=== PATIENT | female | born 1980 | race Caucasian/White ===

== ENCOUNTER 2020-08-03 16:53 | Outpatient (CLI) | payer BC, SELFPAY ==
--- NOTE | ~2020-08-03 | CT_ITS ---
EXAMINATION: CT abdomen pelvis wo con DATE: 08/03/2020 17:37 INDICATION: Right flank pain TECHNIQUE: Computed tomography (CT) of the abdomen and pelvis was performed without intravenous contr ast. Automated exposure control and iterative reconstruction technique were employed. The dose-length product was 306.96 mGy-cm. COMPARISON: 12/02/2017 FINDINGS: Lung bases are clear. Heart size is normal. No pericardial or pleural effusion. Liver, gallbladder, s pleen, pancreas and bilateral adrenal glands are normal. Small region of cortical scarring at the low er pole of the right kidney. Bilateral nephrolithiasis with 2 mm stone in the lower pole calyx of the right kidney and 1.3 cm stone at the right renal pelvis. 4 small stones in the left kidney, the larg est measuring 4-5 mm. No hydronephrosis or stones seen along the course of the ureters. Bowels includ ing the appendix are normal. Bladder is normal. T-shaped IUD in expected position within the antevert ed uterus. 4.4 cm right adnexal cyst. Left adnexa is unremarkable. No free intraperitoneal gas or flu id. No pathologically enlarged abdominal or pelvic lymphadenopathy. Mild lumbar levocurvature. Sclero sis along both sides of the left and right sacroiliac joints which could be related to the moderate o steoarthritis, osteitis condensans ilii or combination thereof. IMPRESSION: 1. Bilateral nephrolithiasis including a 1.3 cm stone at the right renal pelvis but no ureteral stone s or hydronephrosis. 2. 4.4 similar right adnexal cyst. 3. IUD in expected position. Reviewed, dictated and finalized at location A. IMPRESSION: 1. Bilateral nephrolithiasis including a 1.3 cm stone at the right renal pelvis but no ureteral stones or hydronephrosis. 2. 4.4 similar right adnexal cyst. 3. IUD in expected position.
[2020-08-03 17:14] LABS: Basophils Absolute Auto 0.06 K/mm3 (0.00-0.10); Basophils Percent Auto 0.7 % (0.0-1.0); Eosinophils Absolute Auto 0.17 K/mm3 (0.02-0.50); Eosinophils Percent Auto 1.9 % (1.0-6.0); Hematocrit 42.5 % (35.0-49.0); Hemoglobin 14.2 g/dL (12.0-15.0); Immature Granulocyte Absolute 0.14 K/mm3 (0.00-0.00); Immature Granulocyte Percent A 1.5 % (0.0-0.0); Lymphocytes Absolute Auto 1.91 K/mm3 (1.10-4.50); Lymphocytes Percent Auto 20.9 % (18.0-42.0); Mean Corpuscular HGB Conc 33.4 g/dL (32.0-36.0); Mean Corpuscular Hemoglobin 30.2 pg (27.0-31.0); Mean Corpuscular Volume 90.4 fL (78.0-102.0); Monocytes Absolute Auto 0.52 K/mm3 (0.10-0.90); Monocytes Percent Auto 5.7 % (2.0-11.0); Neutrophils Absolute Auto 6.4 K/mm3 (1.7-7.2); Neutrophils Percent Auto 69.3 % (50.0-70.0); Platelet Count Result 252 K/mm3 (150-420); Red Cell Distribution Width 12.6 % (11.6-14.4); White Blood Count 9.2 K/mm3 (4.8-10.8)
[2020-08-03 17:15] LABS: Add Urine Microscopic? YES; Appearance Urine Sl Cloudy (Clear); Bilirubin Urine Negative (Negative); Blood Urine 1+ (Negative); Color Urine Yellow (Yellow); Glucose Urine UA Negative (Negative); Ketones Urine Negative (Negative); Leukocyte Esterase Ur 2+ (Negative); Nitrate Urine Negative (Negative); Protein Urine Negative (Negative); Urobilinogen Urine 0.2 mg/dL (0.2-1.0)
[2020-08-03 17:21] LABS: Bacteria Urine 1+ /hpf; Squamous Epithelial Cell Urine Many /hpf (Few)
[2020-08-03 17:53] LABS: Anion Gap 8 mmol/L (8-16); Blood Urea Nitrogen 17 mg/dL (7-18); Calcium 9.5 mg/dL (8.5-10.1); Carbon Dioxide 30 mmol/L (21-32); Chloride 102 mmol/L (98-108); Estimated Glomerular Filt Rate 58; Glucose 83 mg/dL (70-99); Osmolality Calculated 290 mOsm/kg (285-295); Potassium 3.9 mmol/L (3.5-5.1); Sodium 140 mmol/L (136-145)
== END 2020-08-03 16:54 | disposition home or self-care (01) ==
LOC: CHSLAB 16:56
PROVIDERS: PCP Internal Medicine; Visit Provider Internal Medicine
DX: R31.9 Hematuria, unspecified (principal)
CPT/HCPCS: 36415; 74176; 80048; 81001; 85025; 87086; 87088

== ENCOUNTER 2020-08-10 16:42 | Outpatient (CLI) | payer BC, SELFPAY ==
--- NOTE | ~2020-08-10 | XR_ITS ---
EXAMINATION: XR abdomen/kub 1V DATE: 08/10/2020 17:03 INDICATION: Right flank pain. Urolithiasis. TECHNIQUE: A supine view of the abdomen on 2 radiographs was obtained. COMPARISON: CT abdomen and pelvis 08/03/2020 FINDINGS: There are no dilated loops of bowel. There is an intrauterine device in expected position. There is a 1.9 cm stone in right renal pelvis. There is a 3 mm stone in right kidney. There are 3 mm and 5 mm stones in left kidney. Phleboliths in the pelvis. IMPRESSION: 1. Bilateral kidney stones. Reviewed, dictated and finalized at location A. IMPRESSION: 1. Bilateral kidney stones.
== END 2020-08-10 16:43 | disposition home or self-care (01) ==
PROVIDERS: PCP Internal Medicine; Visit Provider Nurse Practitioner Adult Health
DX: N20.0 Calculus of kidney (principal)
CPT/HCPCS: 74018

== ENCOUNTER → 2020-08-15 01:45 | Outpatient (CLI) | payer BC, SELFPAY ==
[2020-08-15 18:55] LABS: SARS-CoV-2 RNA PCR Negative
== END ==
PROVIDERS: PCP Internal Medicine; Visit Provider Urology
DX: Z01.812 Encounter for preprocedural laboratory examination (principal); Z20.822 Contact with and (suspected) exposure to COVID-19
CPT/HCPCS: C9803; U0003; U0005

== ENCOUNTER 2020-08-15 09:39 | Outpatient (CLI) | payer BC, SELFPAY ==
--- NOTE | 2020-08-15 10:00 | ECG_ITS ---
Measurements Intervals [place] Rate: 85 P: 28 WI: 140 QRS: 32 QRSD: 85 T: 51 QT: 357 QTc: 427 Interpretive Statements SINUS RHYTHM WITH SINUS ARRHYTHMIA BASELINE ARTIFACT- I, III, AVL NORMAL ECG Electronically Signed On 08-15-2020 10:34:20 CDT by Elio Carter D.O.
[2020-08-15 10:16] LABS: INR 0.9; Partial Thromboplastin Time 24.8 SECONDS (22.3-36.8); Prothrombin Time 12.8 Seconds (11.1-14.7)
[2020-08-15 10:26] LABS: Beta HCG Quantitative < 2.39 mIU/ML
== END 2020-08-15 09:40 | disposition home or self-care (01) ==
LOC: ANHSURGERY 09:41
PROVIDERS: PCP Internal Medicine; Visit Provider Urology
DX: N20.0 Calculus of kidney (principal); I10 Essential (primary) hypertension; Z01.818 Encounter for other preprocedural examination
CPT/HCPCS: 36415; 84702; 85610; 85730; 93005

== ENCOUNTER 2020-08-18 05:47 | Day surgery (SDC) | payer BC, SELFPAY ==
[2020-08-14 18:08] VITALS: BMI 32.3
[2020-08-18] VITALS (7 sets, daily range): BP systolic 143–160; BP diastolic 84–97; PULSE 78–90; RESP 14–20; TEMP 36.6–37.2; O2SAT 96–100
--- NOTE | ~2020-08-18 | XR_ITS ---
EXAMINATION: XR abdomen/kub 1V DATE: 08/18/2020 11:21 INDICATION: Right abdominal pain. TECHNIQUE: A supine view of the abdomen on 2 radiographs was obtained. COMPARISON: CT abdomen and pelvis 08/03/2020, radiographs 08/10/2020 FINDINGS: There are phleboliths in the pelvis. There is a intrauterine device in expected position. T here is a 1.9 cm stone in right renal pelvis. There is a 3 mm stone in right kidney lower pole. There are 6 mm and 3 mm stones in left kidney. IMPRESSION: 1. Stones in the kidneys and right renal pelvis. Reviewed, dictated and finalized at location B.
--- NOTE | 2020-08-18 11:13 | WPDHPUPDATE1 ---
History and Physical Update Update Date/Time: 08/18/20 11:13 History and Physical has been reviewed, including an updated exam of the patient. There are NO changes in the patient's condition. Risks, benefits, and alternatives have been discussed and questions answered. Patient agrees to proceed with procedure.
--- NOTE | 2020-08-18 11:43 | WPDANESEPPF ---
Anes - Initial Pre Proc Eval Procedure: Operation Date: 08/18/20 13:00 Proposed Procedures p Right Extracorporeal Shock Wave Lithotripsy - Pato Jose MD s Possible Cystoscopy, Right Retrograde Pyelogram, Possible Right Stent Placement - Pato Jose MD Date/Time: 08/18/20 11:43 Surgeon: Pato Jose MD Pre Op Diagnosis: Right Renal Stone Patient Data Age: 39 Gender: F Height: 5 ft 6 in Weight: 90.72 kg Allergies Allergy/AdvReac Type Severity Reaction Status Date / Time No Known Allergies Allergy Verified 08/18/20 11:44 Home Medications Medication Instructions Recorded Confirmed Type acetaminophen [Tylenol Extra 1,000 mg PO Q6H PRN 08/14/20 08/14/20 History Strength] amlodipine 10 mg PO HS 08/14/20 08/14/20 History multivitamin,vz-ugwe-jqoqyvcc 1 tablet PO DAILY 08/14/20 08/14/20 History [Complete Multivitamin] rosuvastatin 2.5 mg PO HS 08/14/20 08/14/20 History Patient hx anesthesia problems: none Family hx anesthesia problems: none PMFSH Past Medical History Medical History Hyperlipidemia Hypertension Family History Family History Mother Patient's mother is in good health Father Patient's father is in good health Sibling Patient's sister is in good health Grandparent Diabetes mellitus Social History Social History Smoking packs per day: 0.5 Smoking cigarettes per day: 10.0 Years smoked: 6 Smoking pack-years: 3.00 Smoking status: Former smoker Tobacco type: cigarettes Second hand tobacco smoke exposure: No Smoking end date: 05/08/05 Alcohol intake: never Substance use: never Substance use type: does not use Last use: 2005 Living arrangements: with family Spiritual care concerns: No Anes - Eval Final PreProcedure Day of Procedure 08/18/20 11:43 Patient weight: obese Heart: regular rate and rhythm Lungs: clear to auscultation Airway: Mallampati scale class II Neurological: alert and oriented Last oral intake: >/= 8 hours ASA classification: III Emergent: no Anesthetic plan: proceed Anesthesia type and monitoring: general LMA and standard monitoring Informed Consent: The patient's anesthetic plan and its attendant risks and benefits were discussed with the patient/family/POA. Questions were solicited and answers provided to the satisfaction of the patient/family/POA.
[2020-08-18] MEDS: LACTATED RINGERS 1,000 ML 30 ML IV CONT ×2 (12:02→16:35)
--- NOTE | 2020-08-18 13:12 | SUR.PREOP ---
pt informed delay in procedure.
--- NOTE | 2020-08-18 14:48 | P.OP_ITS ---
Procedure Note - Detailed Date of procedure: 08/18/20 Pre-op diagnosis: Right Renal Stone Post-op diagnosis: same Procedure performed: Flexible cystoscopy with right retrograde right stent placement, ESWL right renal calculus Description of procedure: Patient is taken the operative suite and correctly identified. Once anesthesia was obtained she was placed in a frog-leg position and prepped and draped usual sterile fashion. Sixteen [place] scope was placed in the bladder. There are no tumors noted. The right ureteral orifice was cannulated with a guidewire. This was advanced up past the stone. [place] was then inserted. Retrograde pyelogram was then performed to delineate the collecting system. The stent was then placed with the proximal end coiled in the upper pole by passing the stone in the coiling in the bladder. It was a 4.8 [place] contour stent. Patient was then repositioned. Two thousand five hundred shocks were given to the stone. It is a fairly large dense stone. Left to see how well of fragments. Will need to make a decision whether this will be a repeat treatment versus requiring percutaneous nephrolithotomy. Anesthesia: GLMA Surgeon: Pato Jose MD Drains: Yes Packing: No Pathology: none sent Complications: No immediate complications Condition: stable Disposition: PACU
[2020-08-18] MEDS: ONDANSETRON INJ 4 MG/2 ML VIAL IV PUSH (15:08)
--- NOTE | 2020-08-18 15:14 | SUR.PHASEI ---
1514- c/o nausea. medicated for same.
[2020-08-18] MEDS: oxyCODONE HCL (*CRX) 5 MG TAB IR PO (16:22)
== END 2020-08-18 17:00 | disposition home or self-care (01) ==
PROVIDERS: PCP Internal Medicine; Visit Provider Urology
PROC: (CPT 50590; principal; 2020-08-18 13:00)
PROC: (CPT 52352; 2020-08-18 13:00)
DX: N20.0 Calculus of kidney (principal); I10 Essential (primary) hypertension; E78.5 Hyperlipidemia, unspecified; Z87.891 Personal history of nicotine dependence; E66.9 Obesity, unspecified; Z68.31 Body mass index [BMI] 31.0-31.9, adult
CPT/HCPCS: 50590; 52332; 74018; A9270; C1758; C1769; C2617; J1100; J2250; J2405; J2704; J3010; J7030; J7120; Q9966

== ENCOUNTER 2020-08-28 14:47 | Outpatient (CLI) | payer BC, SELFPAY ==
--- NOTE | ~2020-08-28 | XR_ITS ---
XR abdomen/kub 1V 08/28/2020 14:58 Indication: Urolithiasis Procedure: KUB Comparison: Comparison to multiple prior studies sequentially, with oldest reviewed study dated 10/02. Findings: Bowel gas pattern is nonobstructive. There are bilateral renal stones. There is a right int ernal ureteral stents. There is an IUD in the pelvis. There are pelvic phleboliths. Bowel gas pattern is nonobstructive. Impression: 1: Bilateral nephrolithiasis. Reviewed, dictated and finalized at location A. Impression: 1: Bilateral nephrolithiasis.
== END 2020-08-28 14:48 | disposition home or self-care (01) ==
LOC: ANHIMG 14:50
PROVIDERS: PCP Internal Medicine; Visit Provider Nurse Practitioner Adult Health
DX: N20.0 Calculus of kidney (principal)
CPT/HCPCS: 74018

== ENCOUNTER 2020-09-25 15:19 | Outpatient (CLI) | payer BC, SELFPAY ==
[2020-09-25 16:27] LABS: Prothrombin Time 13.9 Seconds (11.1-14.7)
[2020-09-25 16:28] LABS: Partial Thromboplastin Time 26.9 SECONDS (22.3-36.8)
[2020-09-25 16:37] LABS: Beta HCG Quantitative < 2.39 mIU/ML
== END 2020-09-25 15:20 | disposition home or self-care (01) ==
PROVIDERS: PCP Internal Medicine; Visit Provider Urology
DX: N20.0 Calculus of kidney (principal); Z01.818 Encounter for other preprocedural examination
CPT/HCPCS: 36415; 84702; 85610; 85730; 87086; 87088

== ENCOUNTER → 2020-09-26 02:18 | Outpatient (CLI) | payer BC, SELFPAY ==
[2020-09-27 16:33] LABS: SARS-CoV-2 RNA PCR Negative
== END ==
PROVIDERS: PCP Internal Medicine; Visit Provider Urology
DX: Z01.812 Encounter for preprocedural laboratory examination (principal); Z20.822 Contact with and (suspected) exposure to COVID-19
CPT/HCPCS: C9803; U0003; U0005

== ENCOUNTER 2020-09-29 01:45 | Day surgery (SDC) | payer BC, SELFPAY ==
[2020-09-22 14:48] VITALS: BMI 32.3
[2020-09-29] VITALS (7 sets, daily range): BP systolic 128–146; BP diastolic 80–90; PULSE 73–87; RESP 13–18; TEMP 36.2–36.4; O2SAT 95–100
--- NOTE | ~2020-09-29 | XR_ITS ---
EXAMINATION: XR abdomen/kub 1V INDICATION: Urolithiasis TECHNIQUE: Supine views of the abdomen were obtained on 2 radiographs. COMPARISON: 08/28/2020 FINDINGS: A right internal ureteral stent is in expected position. There are multiple stones around t he coiled portion of the stent in the renal pelvis. Multiple stones have migrated from the proximal u reter to the distal ureter and are seen along the distal aspect of the internal ureteral stent. Stone s measuring 8 mm, 7 mm, 4 mm, and 6 mm are seen in the right mid and lower kidney. There is a [address] one of the left kidney. There are multiple stones phleboliths are noted in the pelvis. There is an IU D. The bowel gas pattern is normal. IMPRESSION: 1. Right internal ureteral stent in expected position with stones adjacent to the coiled portion of t he stent in the renal pelvis as well as the distal portion of the stent. 2. Bilateral nephrolithiasis. Reviewed, dictated and finalized at location A. IMPRESSION: 1. Right internal ureteral stent in expected position with stones adjacent to t he coiled portion of the stent in the renal pelvis as well as the distal portio n of the stent. 2. Bilateral nephrolithiasis.
--- NOTE | 2020-09-29 09:42 | WPDHPUPDATE1 ---
History and Physical Update Update Date/Time: 09/29/20 09:42 History and Physical has been reviewed, including an updated exam of the patient. There are NO changes in the patient's condition. Risks, benefits, and alternatives have been discussed and questions answered. Patient agrees to proceed with procedure. Proceed with eswl of right renal and proximal ureteral calculus, possible cystoscopy, possible right stent exchange.
[2020-09-29] MEDS: LACTATED RINGERS 1,000 ML 30 ML IV CONT ×2 (10:00→11:55)
--- NOTE | 2020-09-29 10:11 | P.PNAN_ITS ---
Anes - Initial Pre Proc Eval Procedure: Operation Date: 09/29/20 11:30 Proposed Procedures p Right Extracorporeal Shock Wave Lithotripsy, Proximal Ureteral and Renal, - Pato Jose MD s Possible Cystoscopy, Possible Right Stent Exchange - Pato Jose MD Date/Time: 09/29/20 10:11 Surgeon: Pato Jose MD Pre Op Diagnosis: urolithiasis, renal stones Patient Data Age: 40 Gender: F Height: 1.68 m Weight: 90.75 kg Allergies Allergy/AdvReac Type Severity Reaction Status Date / Time No Known Allergies Allergy Verified 09/22/20 14:15 Home Medications Medication Instructions Recorded Confirmed Type acetaminophen 1,000 mg PO Q6H PRN 08/14/20 09/22/20 History amlodipine 10 mg PO HS 08/14/20 09/22/20 History multivitamin,ng-rxlq-qnxcwxky 1 tablet PO DAILY 08/14/20 09/22/20 History rosuvastatin 2.5 mg PO HS 08/14/20 09/22/20 History Patient hx anesthesia problems: none Family hx anesthesia problems: none [facility] Past Medical History Medical History (Updated 09/29/20 @ 10:11 by Otf Story MD) Hyperlipidemia Hypertension Obesity Family History Family History Mother Patient's mother is in good health Father Patient's father is in good health Sibling Patient's sister is in good health Grandparent Diabetes mellitus Social History Social History Smoking packs per day: 0.5 Smoking cigarettes per day: 10.0 Years smoked: 10 Smoking pack-years: 5.00 Smoking status: Former smoker Tobacco type: cigarettes Second hand tobacco smoke exposure: No Smoking end date: 04/07/05 Alcohol intake: current Drinks per week: 1 Substance use: never Substance use type: does not use Last use: 2005 Living arrangements: with family Spiritual care concerns: No Anes - Eval Final PreProcedure Day of Procedure 09/29/20 10:11 Patient weight: obese Heart: regular rate and rhythm Lungs: clear to auscultation Airway: Mallampati scale class II Neurological: alert and oriented Last oral intake: >/= 8 hours ASA classification: III Emergent: no Anesthetic plan: proceed Anesthesia type and monitoring: general LMA and standard monitoring Informed Consent: The patient's anesthetic plan and its attendant risks and benefits were discussed with the patient/family/POA. Questions were solicited and answers provided to the satisfaction of the patient/family/POA.
[2020-09-29] MEDS: ceFAZolin 2 GM/D5W 50 ML 2 GM/50 ML BAG IVPB (10:25)
--- NOTE | 2020-09-29 11:48 | W.PM.PROC2 ---
Procedure Note - Detailed Date of Procedure 09/29/20 Pre-op Diagnosis urolithiasis, renal stones Post-op Diagnosis same Procedure Performed ESWL of right renal calculi, ESWL of distal right ureteral calculi Surgeon Pato Jose MD Anesthesia general Description of Procedure Patient is taken the operative suite and correctly identified. Once anesthesia was obtained the stones in the right kidney were localized. She has a collection of stones in the renal pelvis adjacent to the stent. One thousand eight hundred shocks were given to this segment. We then gave 700 shocks to the upper pole stone. Patient also has some stone fragments in the distal ureter. She was repositioned and 3000 shocks were given to the distal ureteral calculi. Patient tolerated procedure well without any complications taken recovery stable condition. She will follow up in about 10 -14 days with KUB Packing No Pathology none sent Complications No immediate complications Condition stable Disposition PACU
== END 2020-09-29 13:57 | disposition home or self-care (01) ==
PROVIDERS: PCP Internal Medicine; Visit Provider Urology
PROC: (CPT 50590; principal; 2020-09-29 11:30)
DX: N20.2 Calculus of kidney with calculus of ureter (principal); E78.5 Hyperlipidemia, unspecified; Z87.891 Personal history of nicotine dependence; E66.8 Other obesity; Z68.32 Body mass index [BMI] 32.0-32.9, adult; I10 Essential (primary) hypertension
CPT/HCPCS: 50590; 74018; A9270; J0690; J2250; J2405; J2704; J3010; J7030; J7120

== ENCOUNTER 2020-10-10 17:36 | Outpatient (CLI) | payer BC, SELFPAY ==
--- NOTE | ~2020-10-10 | XR_ITS ---
XR abdomen/kub 1V 10/10/2020 17:51 Indication: Right ureteral and renal stone. Procedure: KUB Comparison: Comparison to multiple prior studies sequentially, with oldest reviewed study dated 09/2020. Findings: There are bilateral renal stones. Right internal ureteral stent in expected position. There is an IUD in the pelvis. There are stones in the right renal collecting system. Bowel gas pattern is nonobstructive. Impression: 1: Bilateral nephrolithiasis with right internal ureteral stent in expected position. Reviewed, dictated and finalized at location A. Impression: 1: Bilateral nephrolithiasis with right internal ureteral stent in expected pos ition.
== END 2020-10-10 17:37 | disposition home or self-care (01) ==
LOC: ANHIMG 17:39
PROVIDERS: PCP Internal Medicine; Visit Provider Nurse Practitioner Adult Health
DX: N20.0 Calculus of kidney (principal)
CPT/HCPCS: 74018

== ENCOUNTER 2020-10-24 10:08 | Outpatient (CLI) | payer BC, SELFPAY ==
[2020-10-24 10:45] LABS: INR 0.9; Prothrombin Time 12.4 Seconds (11.1-14.7)
[2020-10-24 10:46] LABS: Partial Thromboplastin Time 26.4 SECONDS (22.3-36.8)
[2020-10-24 11:02] LABS: Beta HCG Quantitative < 2.39 mIU/ML
== END 2020-10-24 10:09 | disposition home or self-care (01) ==
LOC: ANHSURGERY 10:11
PROVIDERS: PCP Internal Medicine; Visit Provider Urology
DX: N20.0 Calculus of kidney (principal); Z01.818 Encounter for other preprocedural examination
CPT/HCPCS: 36415; 84702; 85610; 85730

== ENCOUNTER 2020-10-27 02:25 | Day surgery (SDC) | payer BC, SELFPAY ==
[2020-10-23 15:30] VITALS: BMI 32.3
[2020-10-27] VITALS (8 sets, daily range): BP systolic 137–170; BP diastolic 85–94; PULSE 79–88; RESP 12–17; TEMP 36.4–36.7; O2SAT 94–100
--- NOTE | ~2020-10-27 | XR_ITS ---
EXAMINATION: XR abdomen/kub 1V INDICATION: Urolithiasis TECHNIQUE: Supine views of the abdomen were obtained on 2 radiographs. COMPARISON: 10/10/2020 FINDINGS: A right internal ureteral stent is in expected position. There are multiple stones near the proximal aspect of the stent. At least three stones measuring up to 5 mm are seen in the right kidne y. A 10 mm stone on the left appears to have migrated from the left kidney lower pole into the left r enal pelvis. There are phleboliths of the pelvis. An IUD is noted. The bowel gas pattern is normal. T here is osteitis pubis at the pubic symphysis. IMPRESSION: 1. Multiple stones adjacent to the proximal aspect of the right internal ureteral stent. 2. 10 mm left-sided stone which now appears to project in the left renal pelvis. 3. Right nephrolithiasis. Reviewed, dictated and finalized at location B. IMPRESSION: 1. Multiple stones adjacent to the proximal aspect of the right internal ureter al stent. 2. 10 mm left-sided stone which now appears to project in the left renal pelvis . 3. Right nephrolithiasis.
--- NOTE | 2020-10-27 10:24 | WPDHPUPDATE1 ---
History and Physical Update Update Date/Time: 10/27/20 10:24 History and Physical has been reviewed, including an updated exam of the patient. There are NO changes in the patient's condition. Risks, benefits, and alternatives have been discussed and questions answered. Patient agrees to proceed with procedure. Proceed with right renal eswl
[2020-10-27] MEDS: LACTATED RINGERS 1,000 ML 30 ML IV CONT (10:40)
--- NOTE | 2020-10-27 11:34 | WPDANESEPPF ---
Anes - Initial Pre Proc Eval Procedure: Operation Date: 10/27/20 12:00 Proposed Procedures p Right Ureteral Extracorporeal Shock Wave Lithotripsy - Pato Jose MD Date/Time: 10/27/20 11:34 Surgeon: Pato Jose MD Pre Op Diagnosis: right UPJ calculus Patient Data Age: 40 Gender: F Height: 1.68 m Weight: 90.4 kg Last Vital Signs Temp 36.7 C 10/27/20 10:57 Pulse 86 10/27/20 10:57 Resp 16 10/27/20 10:57 BP 170/93 H 10/27/20 10:57 Pulse Ox 100 10/27/20 10:57 Allergies Allergy/AdvReac Type Severity Reaction Status Date / Time No Known Allergies Allergy Verified 10/27/20 10:57 Home Medications Medication Instructions Recorded Confirmed Type acetaminophen 1,000 mg PO Q6H PRN 08/14/20 10/27/20 History amlodipine 10 mg PO HS 08/14/20 10/27/20 History rosuvastatin 2.5 mg PO HS 08/14/20 10/27/20 History multivit with min-folic acid 1 tablet PO DAILY 10/23/20 10/27/20 History [Adult One Daily Multivitamin] Patient hx anesthesia problems: none Family hx anesthesia problems: none PMFSH Past Medical History Medical History Hyperlipidemia Hypertension Obesity Family History Family History Mother Patient's mother is in good health Father Patient's father is in good health Sibling Patient's sister is in good health Grandparent Diabetes mellitus Social History Social History Smoking packs per day: 0.5 Smoking cigarettes per day: 10.0 Years smoked: 8 Smoking pack-years: 4.00 Smoking status: Former smoker Tobacco type: cigarettes Second hand tobacco smoke exposure: No Smoking end date: 10/23/20 Alcohol intake: never Drinks per week: 1 Substance use: never Substance use type: does not use Last use: 2005 Living arrangements: with family Spiritual care concerns: No Anes - Eval Final PreProcedure Day of Procedure 10/27/20 11:34 Patient weight: obese Heart: regular rate and rhythm Lungs: decreased breath sounds Airway: Mallampati scale class II Neurological: alert and oriented Last oral intake: >/= 8 hours ASA classification: III Emergent: no Anesthetic plan: proceed Anesthesia type and monitoring: general LMA and standard monitoring Informed Consent: The patient's anesthetic plan and its attendant risks and benefits were discussed with the patient/family/POA. Questions were solicited and answers provided to the satisfaction of the patient/family/POA.
[2020-10-27] MEDS: ceFAZolin 2 GM/D5W 50 ML 2 GM/50 ML BAG IVPB (11:54)
[2020-10-27] MEDS: LIDOCAINE HCL 2% GEL UROJET 10 ML PKG MUCOUS MEM (12:50)
--- NOTE | 2020-10-27 12:56 | P.OP_ITS ---
Procedure Note - Detailed Date of Procedure 10/27/20 Pre-op Diagnosis Bilateral UPJ calculi Post-op Diagnosis same Procedure Performed cystoscopy, right retrograde pyelogram, right ureteral stent exchange 4.8 [place] contour, left retrograde pyelogram left stent placement 4.8 [place] contour, ESWL right UPJ calculus Surgeon Pato Jose MD Anesthesia general Description of Procedure patient is taken to the operative suite and correctly identified. Once anesthesia was obtained she was placed in the supine position. The stone in the right UPJ area was visualized. Two thousand five hundred shocks were given this area. We then repositioned the patient in a frog-leg position. Cystoscopy is performed. There are no tumors noted. The right ureteral stent is then grasped and brought out the meatus. It had already calcified. We thus placed a [place] wire alongside the stent all way up into the kidney and removed the stent. Pyelogram was then performed through a [place] ureteral catheter. This was done to confirm placement of the stent. A 4.8 [place] contour stent was then passed over the wire with the proximal end coiled in the renal pelvis and the distal in the bladder. The left ureteral orifice was then cannulated with a guidewire. [place] was inserted. The stone was pushed back up into the kidney. Pyelogram was performed to confirm placement of the stent. 4.8 [place] contour stent was then placed with the proximal end coiled in the renal pelvis and the distal in the bladder. 2% viscous lidocaine was inserted into the urethra. Patient is taken recovery stable condition. She will follow up in about a week's time for KUB and hopefully right stent removal. Will need to schedule lithotripsy of the left stent elevator point time. Drains Yes Packing No Pathology none sent Complications No immediate complications Condition stable Disposition PACU
== END 2020-10-27 14:55 | disposition home or self-care (01) ==
PROVIDERS: PCP Internal Medicine; Visit Provider Urology
PROC: (CPT 50590; principal; 2020-10-27 12:00)
PROC: (CPT 52352; 2020-10-27 12:00)
DX: N20.1 Calculus of ureter (principal); I10 Essential (primary) hypertension; E78.5 Hyperlipidemia, unspecified; E66.9 Obesity, unspecified; Z68.32 Body mass index [BMI] 32.0-32.9, adult; Z87.891 Personal history of nicotine dependence
CPT/HCPCS: 52332; 50590; 74018; C1758; C1769; C2617; J0690; J1100; J1170; J2250; J2405; J2704; J7120; Q9966

== ENCOUNTER 2020-11-02 16:38 | Outpatient (CLI) | payer BC, SELFPAY ==
--- NOTE | ~2020-11-02 | XR_ITS ---
EXAMINATION: XR abdomen/kub 1V INDICATION: History of bilateral kidney stones TECHNIQUE: Supine views of the abdomen were obtained on 2 radiographs. COMPARISON: 10/27/2020 FINDINGS: A right internal ureteral stent is in expected position. Stones persist near the coiled asp ect of the proximal stent. There is a 5 mm stone in the right kidney lower pole. A 5 mm stone is note d in the right mid kidney. There has been interval insertion of a left internal ureteral stent which is in expected position. A 10 mm stone is seen in the lower pole of the left kidney. There are multip le phleboliths of the pelvis. The bowel gas pattern is normal. An IUD is noted. There is mild osteoar thritis of the hips and mild osteitis pubis. IMPRESSION: 1. Bilateral nephrolithiasis. 2. Left internal ureteral stent insertion. 3. Right internal ureteral stent in expected position with unchanged stones seen near the coil aspect of the proximal stent. Reviewed, dictated and finalized at location A. IMPRESSION: 1. Bilateral nephrolithiasis. 2. Left internal ureteral stent insertion. 3. Right internal ureteral stent in expected position with unchanged stones see n near the coil aspect of the proximal stent.
== END 2020-11-02 16:39 | disposition home or self-care (01) ==
LOC: ANHIMG 16:40
PROVIDERS: PCP Internal Medicine; Visit Provider Urology
DX: N20.0 Calculus of kidney (principal)
CPT/HCPCS: 74018

== ENCOUNTER 2020-11-07 11:25 | Outpatient (CLI) | payer BC, SELFPAY ==
[2020-11-07 12:10] LABS: INR 0.9; Prothrombin Time 12.2 Seconds (11.1-14.7)
[2020-11-07 12:11] LABS: Partial Thromboplastin Time 32.6 SECONDS (22.3-36.8)
[2020-11-07 12:26] LABS: Beta HCG Quantitative < 2.39 mIU/ML
== END 2020-11-07 11:26 | disposition home or self-care (01) ==
LOC: ANHSURGERY 11:26
PROVIDERS: PCP Internal Medicine; Visit Provider Urology
DX: N20.0 Calculus of kidney (principal); Z01.818 Encounter for other preprocedural examination
CPT/HCPCS: 36415; 84702; 85610; 85730; 87086; 87088

== ENCOUNTER 2020-11-10 03:30 | Day surgery (SDC) | payer BC, SELFPAY ==
[2020-11-06 17:01] VITALS: BMI 32.3
[2020-11-10] VITALS (9 sets, daily range): BP systolic 118–135; BP diastolic 75–88; PULSE 86–118; RESP 14–20; TEMP 36.4–36.9; O2SAT 93–100
--- NOTE | ~2020-11-10 | XR_ITS ---
EXAMINATION: XR abdomen/kub 1V INDICATION: Nephrolithiasis TECHNIQUE: Supine views of the abdomen were obtained on 2 radiographs. COMPARISON: 11/02/2020 FINDINGS: There are bilateral internal ureteral stents in expected position. A 10 mm stone is seen ne ar the coiled aspect of the left internal ureteral stent in the left renal pelvis. There are multiple small stones seen near the coiled aspect of the right internal ureteral stent in the right renal pel vis. There is a 4 mm stone of the right kidney lower pole. There are small stones adjacent to the dis matt aspect of the right internal ureteral stent. Phleboliths are noted in the pelvis. An IUD is prese nt. The bowel gas pattern is normal. IMPRESSION: 1. Internal ureteral stent in expected positions with stones adjacent to the coiled aspects of the st ents in the bilateral renal pelves. 2. Small stones adjacent to the distal aspect of the right internal ureteral stent. Reviewed, dictated and finalized at location A. IMPRESSION: 1. Internal ureteral stent in expected positions with stones adjacent to the co iled aspects of the stents in the bilateral renal pelves. 2. Small stones adjacent to the distal aspect of the right internal ureteral st ent.
--- NOTE | 2020-11-10 07:22 | WPDANESEPPF ---
Anes - Initial Pre Proc Eval Procedure: Operation Date: 11/10/20 08:30 Proposed Procedures p Left Renal Extracorporeal Shock Wave Lithotripsy, - Pato Jose MD s Cystoscopy,Right Ureteroscopy, Right Retrograde Pyelogram, Right Stone Extraction, - Pato Jose MD s Possible Holmium Laser Procedure - Pato Jose MD Date/Time: 11/10/20 07:22 Surgeon: Pato Jose MD Pre Op Diagnosis: Bilat Renal stones Patient Data Age: 40 Gender: F Height: 1.68 m Weight: 90.72 kg Allergies Allergy/AdvReac Type Severity Reaction Status Date / Time No Known Allergies Allergy Verified 10/27/20 10:57 Home Medications Medication Instructions Recorded Confirmed Type acetaminophen 1,000 mg PO Q6H PRN 08/14/20 11/06/20 History amlodipine 10 mg PO HS 08/14/20 11/06/20 History rosuvastatin 2.5 mg PO HS 08/14/20 11/06/20 History Adult One Daily Multivitamin 1 tablet PO DAILY 10/23/20 11/06/20 History Patient hx anesthesia problems: none Family hx anesthesia problems: none PMFSH Past Medical History Medical History Hyperlipidemia Hypertension Obesity Family History Family History Mother Patient's mother is in good health Father Patient's father is in good health Sibling Patient's sister is in good health Grandparent Diabetes mellitus Social History Social History Smoking packs per day: 1 Smoking cigarettes per day: 20.0 Years smoked: 8 Smoking pack-years: 8.00 Smoking status: Former smoker Tobacco type: cigarettes Second hand tobacco smoke exposure: No Smoking end date: 11/06/06 Alcohol intake: current Drinks per week: 1 Alcohol use details: MIXED DRINK Substance use: never Substance use type: does not use Last use: 2005 Living arrangements: with family Spiritual care concerns: No Anes - Eval Final PreProcedure Day of Procedure 11/10/20 07:22 Patient weight: obese Heart: regular rate and rhythm Lungs: clear to auscultation Airway: Mallampati scale class II Neurological: alert and oriented Last oral intake: >/= 8 hours ASA classification: II Emergent: no Anesthetic plan: proceed Anesthesia type and monitoring: general LMA and standard monitoring Informed Consent: The patient's anesthetic plan and its attendant risks and benefits were discussed with the patient/family/POA. Questions were solicited and answers provided to the satisfaction of the patient/family/POA.
--- NOTE | 2020-11-10 07:26 | WPDHPUPDATE1 ---
History and Physical Update Update Date/Time: 11/10/20 07:26 History and Physical has been reviewed, including an updated exam of the patient. There are NO changes in the patient's condition. Risks, benefits, and alternatives have been discussed and questions answered. Patient agrees to proceed with procedure. Proceed with cystoscopy, right retrograde, right ureteroscopy with stone extraction, possible laser, stent exchange, left renal eswl
[2020-11-10] MEDS: LACTATED RINGERS 1,000 ML 30 ML IV CONT ×2 (07:30→10:48)
[2020-11-10] MEDS: ceFAZolin 2 GM/D5W 50 ML 2 GM/50 ML BAG IVPB (08:36)
[2020-11-10] MEDS: LIDOCAINE HCL 2% GEL UROJET 10 ML PKG MUCOUS MEM (10:15)
--- NOTE | 2020-11-10 10:45 | W.PM.PROC2 ---
Procedure Note - Detailed Date of Procedure 11/10/20 Pre-op Diagnosis Bilat Renal stones Post-op Diagnosis same Procedure Performed Cystoscopy, right retrograde pyelogram, right ureteroscopy with stone extraction, right ureteral stent placement, left renal lithotripsy Surgeon Pato Jose MD Anesthesia general Description of Procedure patient is taken the operative suite and correctly identified. Once anesthesia was obtained she was placed in dorsal lithotomy position and prepped and draped usual sterile fashion. Twenty-two Venezuelan scope was inserted in the bladder. The right ureteral stent was brought out to the meatus. Guidewire was placed through it. A rigid ureteral scope was inserted. There was a stone in the distal ureter which we retrieved using an escape basket. We then placed ureteral access sheath and inspected the kidney. She had multiple stones in the lower pole and midpole area. These were retrieved. Fluoroscopy reveals some stone in a more mid to upper pole calyx. We were unable to visualize any these at this time. Retrograde pyelogram was then performed after placement of the stent. 4.8 Venezuelan contour stent was then placed with the proximal end coiled in the renal pelvis and the distal in the bladder. Patient's bladder was drained. 2% viscous lidocaine was inserted into urethra. Patient was repositioned. The left renal stone was visualized. Two thousand five hundred shocks were given to the stone. There appeared to be good fragmentation. Patient is taken recovery stable condition. She will follow up in about 10 days with [facility].
[2020-11-10] MEDS: ONDANSETRON INJ 4 MG/2 ML VIAL IV PUSH (11:32)
[2020-11-10] MEDS: traMADol HCL (*CRX) 50 MG TABLET PO (12:45)
== END 2020-11-10 13:30 | disposition home health service (06) ==
PROVIDERS: PCP Internal Medicine; Visit Provider Urology
PROC: (CPT 50590; principal; 2020-11-10 08:30)
PROC: (CPT 52352; 2020-11-10 08:30)
DX: N20.2 Calculus of kidney with calculus of ureter (principal); I10 Essential (primary) hypertension; E78.5 Hyperlipidemia, unspecified; E66.9 Obesity, unspecified; Z68.31 Body mass index [BMI] 31.0-31.9, adult; Z87.891 Personal history of nicotine dependence
CPT/HCPCS: 52332; 52352; 50590; 74018; 82365; 88300; A9270; C1769; C1894; C2617; J0690; J1100; J2250; J2405; J2704; J3010; J7030; J7120; Q9966

== ENCOUNTER 2020-11-22 16:46 | Outpatient (CLI) | payer BC, SELFPAY ==
--- NOTE | ~2020-11-22 | XR_ITS ---
XR abdomen/kub 1V DATE: 11/22/2020 17:21 INDICATION: Recent intervention to remove kidney stones 11/10/2020. TECHNIQUE: AP projection, 2 views COMPARISON: 11/10/2020 KUB FINDINGS: Bilateral internal urinary stents are in expected position. Multiple calcified calculi overlying the lower pole of the right kidney and right renal pelvis on 11/10 are no longer identified. Prior approximately 7.5 mm, calcification overlying the lower pole of the left kidney adjacent to the left internal urinary stent is no longer identified. There are faint calcifications overlying the lo wer pole, likely residual stone fragments secondary to recent lithotripsy. No apparent calcified ureteral calculi in either ureter. There are multiple bilateral calcified pelvic phleboliths. IUD overlies the pelvis. IMPRESSION: Interval significantly diminished stone burden of left kidney and apparent resolution of right urinary tract calculi since 11/10/2020 lithotripsy procedure Bilateral internal urinary stents Reviewed, dictated and finalized at [facility]. Reviewed, dictated and finalized at location A. IMPRESSION: Interval significantly diminished stone burden of left kidney and a pparent resolution of right urinary tract calculi since 11/10/2020 lithotripsy pr ocedure Bilateral internal urinary stents
== END 2020-11-22 16:47 | disposition home or self-care (01) ==
PROVIDERS: PCP Internal Medicine; Visit Provider Urology
DX: N20.0 Calculus of kidney (principal)
CPT/HCPCS: 74018

== ENCOUNTER → 2021-01-17 16:47 | Outpatient (CLI) | payer BC, SELFPAY ==
--- NOTE | ~2021-01-17 | MM_ITS ---
EXAMINATION: MM screening akosua BI w krzysztof HISTORY: Screening TECHNIQUE: Craniocaudal and mediolateral oblique 3-D tomosynthesis images were obtained and synthetic 2-D images were generated. CAD analysis was submitted and interpreted. COMPARISON: No prior mammogram is available for comparison at this institution. BREAST PARENCHYMAL COMPOSITION: There are scattered areas of fibroglandular density. FINDINGS: There are focal asymmetries in the upper outer quadrant of the left breast. There are no alvares spicious masses, calcifications or architectural distortion right breast to suggest malignancy. IMPRESSION: 1. Focal left breast asymmetries, upper outer quadrant. 2. Additional mammographic views and possible breast ultrasound are recommended. BI-RADS Category 0: Incomplete: Needs additional imaging evaluation. Reviewed, dictated and finalized at location A. IMPRESSION: 1. Focal left breast asymmetries, upper outer quadrant. 2. Additional mammographic views and possible breast ultrasound are recommended . BI-RADS Category 0: Incomplete: Needs additional imaging evaluation.
== END ==
PROVIDERS: Visit Provider Obstetrics & Gynecology
DX: Z12.31 Encounter for screening mammogram for malignant neoplasm of breast (principal); R92.8 Other abnormal and inconclusive findings on diagnostic imaging of breast
CPT/HCPCS: 77063; 77067

== ENCOUNTER 2021-10-15 07:49 | Outpatient (CLI) | payer BC, SELFPAY ==
[2021-10-15 08:13] LABS: Basophils Absolute Auto 0.09 K/mm3 (0.00-0.10); Basophils Percent Auto 1.2 % (0.0-1.0); Eosinophils Absolute Auto 0.15 K/mm3 (0.02-0.50); Eosinophils Percent Auto 2.1 % (1.0-6.0); Hematocrit 44.8 % (35.0-49.0); Immature Granulocyte Absolute 0.19 K/mm3 (0.00-0.00); Immature Granulocyte Percent A 2.6 % (0.0-0.0); Lymphocytes Absolute Auto 1.44 K/mm3 (1.10-4.50); Lymphocytes Percent Auto 19.9 % (18.0-42.0); Mean Corpuscular HGB Conc 33.5 g/dL (32.0-36.0); Mean Corpuscular Hemoglobin 30.2 pg (27.0-31.0); Mean Corpuscular Volume 90.3 fL (78.0-102.0); Monocytes Absolute Auto 0.48 K/mm3 (0.10-0.90); Monocytes Percent Auto 6.6 % (2.0-11.0); Neutrophils Absolute Auto 4.9 K/mm3 (1.7-7.2); Neutrophils Percent Auto 67.6 % (50.0-70.0); Platelet Count Result 246 K/mm3 (150-420); Red Blood Count 4.96 M/mm3 (4.20-5.40); Red Cell Distribution Width 12.8 % (11.6-14.4); White Blood Count 7.2 K/mm3 (4.8-10.8)
[2021-10-15 08:19] LABS: Appearance Urine Clear (Clear); Bilirubin Urine Negative (Negative); Color Urine Yellow (Yellow); Glucose Urine UA Negative (Negative); Ketones Urine Negative (Negative); Leukocyte Esterase Ur 1+ (Negative); Nitrate Urine Negative (Negative); Protein Urine Negative (Negative); Urobilinogen Urine 0.2 mg/dL (0.2-1.0); pH Urine 6.5 (5.0-8.0)
[2021-10-15 08:23] LABS: Add Urine Microscopic? YES; Bacteria Urine 1+ /hpf; Blood Urine Trace-Intact (Negative); RBC Urine None seen /hpf (0-2); Squamous Epithelial Cell Urine Moderate /hpf (Few)
[2021-10-15 08:38] LABS: Alanine Aminotransferase 34 U/L (14-59); Alkaline Phosphatase 49 U/L (46-116); Anion Gap 5 mmol/L (8-16); Aspartate Amino Transferase 17 U/L (15-37); Bilirubin,Total 0.6 mg/dL (0.00-1.00); Blood Urea Nitrogen 12 mg/dL (7-18); Calcium 9.2 mg/dL (8.5-10.1); Carbon Dioxide 28 mmol/L (21-32); Chloride 104 mmol/L (98-108); Cholesterol 178 mg/dL (0-200); Estimated Glomerular Filt Rate 50; Free T4 Free Thyroxine 1.15 ng/dL (0.76-1.46); Glucose 91 mg/dL (70-99); HDL Direct 40 mg/dL (40-60); LDL Cholesterol Calculated 75 mg/dL (<130); Osmolality Calculated 283 mOsm/kg (285-295); Potassium 4.2 mmol/L (3.5-5.1); Sodium 137 mmol/L (136-145); Thyroid Stimulating Hormone 1.99 uIU/mL (0.36-3.74); Total Protein 7.2 g/dL (6.4-8.2); Triglycerides 314 mg/dL (0-150)
== END 2021-10-15 07:50 | disposition home or self-care (01) ==
LOC: CHSLAB 07:51
PROVIDERS: PCP Internal Medicine; Visit Provider Internal Medicine
DX: Z00.00 Encounter for general adult medical examination without abnormal findings (principal)
CPT/HCPCS: 36415; 80053; 80061; 81001; 84439; 84443; 85025

== ENCOUNTER → 2022-08-06 12:27 | Outpatient (CLI) | payer BC, SELFPAY ==
--- NOTE | ~2022-08-06 | MM_ITS ---
EXAMINATION: MM screening akosua BI w krzysztof HISTORY: Screening mammogram TECHNIQUE: Craniocaudal and mediolateral oblique 3-D tomosynthesis images were obtained and synthetic 2-D images were generated. CAD analysis was submitted and interpreted. COMPARISON: 01/17/2021 BREAST PARENCHYMAL COMPOSITION: There are scattered areas of fibroglandular density. FINDINGS: RIGHT BREAST: No suspicious mass, calcification, or architectural distortion are identified to sugges t malignancy. There has been no suspicious interval change. LEFT BREAST: There is an obscured mass in the posterior third of the upper outer quadrant of the jalen [address]. IMPRESSION: 1. Left breast mass. 2. Additional mammographic views and possible breast ultrasound are recommended. BI-RADS Category 0: Incomplete: Needs additional imaging evaluation. Reviewed, dictated and finalized at location A. IMPRESSION: 1. Left breast mass. 2. Additional mammographic views and possible breast ultrasound are recommended . BI-RADS Category 0: Incomplete: Needs additional imaging evaluation.
== END ==
PROVIDERS: PCP Internal Medicine; Visit Provider Obstetrics & Gynecology
DX: Z12.31 Encounter for screening mammogram for malignant neoplasm of breast (principal); R92.8 Other abnormal and inconclusive findings on diagnostic imaging of breast
CPT/HCPCS: 77063; 77067

== ENCOUNTER 2022-08-29 07:59 | Outpatient (CLI) | payer BC, SELFPAY ==
--- NOTE | ~2022-08-29 | MMUS_ITS ---
EXAMINATION: MM diagnostic akosua LT w krzysztof, US breast LT limited HISTORY: Left breast mass on screening mammogram TECHNIQUE: Additional 3-D tomosynthesis images of the left breast were performed and synthetic 2-D im ages were generated. CAD analysis was submitted and interpreted. High resolution limited left breast ultrasound was performed. COMPARISON: 08/06/2022, 01/17/2021 FINDINGS: MAMMOGRAPHIC FINDINGS: There is a 2.1 cm oval, equal density mass with indistinct margins in the posterior third of the uppe r outer quadrant of the breast at the 1:00 location, 9.5 cm from the nipple. ULTRASOUND: There is a 2.1 x 1.1 cm oval, circumscribed, parallel, hypoechoic mass with posterior acoustic enhanc ement and no internal vascularity at the 1:00 location, 7 cm from the nipple. IMPRESSION: 1. Indeterminate left breast mass. 2. Ultrasound-guided biopsy is recommended. BI-RADS category 4, suspicious findings. Reviewed, dictated and finalized at location A. IMPRESSION: 1. Indeterminate left breast mass. 2. Ultrasound-guided biopsy is recommended. BI-RADS category 4, suspicious findings.
== END 2022-08-29 08:00 ==
PROVIDERS: PCP Internal Medicine; Visit Provider Obstetrics & Gynecology
DX: R92.8 Other abnormal and inconclusive findings on diagnostic imaging of breast (principal)
CPT/HCPCS: 76642; 77061; 77065; G0279

== ENCOUNTER 2022-09-26 11:01 | Outpatient (CLI) | payer BC, SELFPAY ==
--- NOTE | ~2022-09-26 | MMUS_ITS ---
EXAMINATION: US GUIDED NEEDLE BIOPSY DATE: 09/26/2022 12:45 CDT INDICATION: 2.1 x 1.1 cm solid left breast mass at 1:00 7 cm from nipple reported on 08/29/2022 Limite d left breast ultrasound examination TECHNIQUE AND FINDINGS: The risks and potential benefits of the procedure were discussed with the patient, and written inform ed consent was obtained. Timeout procedure was performed. After sterile preparation of the left breas t, 1% lidocaine was utilized for local anesthesia. A 12 G spring-loaded biopsy gun needle was advanced to the edge of the region of interest from inferi or approach utilizing sonographic guidance. A total of three tissue core samples were obtained throu gh the lesion. An hydro marker was then placed at the biopsy site. Hemostasis was achieved. A steril e bandage was applied. The patient tolerated procedure well and there was no evidence of immediate complication. The patien t was given verbal instructions prior to departing from the department. A two view mammogram was perf ormed to document tissue marker clip placement. The tissue samples were submitted to surgical patholo gy for histologic analysis. IMPRESSION: Ultrasound guided biopsy of 1:00 left breast mass with biopsy marker placement. Please refer to patho logy report for histologic analysis. Reviewed, dictated and finalized at [facility]. Reviewed, dictated and finalized at location A. IMPRESSION: Ultrasound guided biopsy of 1:00 left breast mass with biopsy marker placement. Please refer to pathology report for histologic analysis.
== END 2022-09-26 11:02 | disposition home or self-care (01) ==
PROVIDERS: PCP Internal Medicine; Visit Provider Surgery
DX: N60.22 Fibroadenosis of left breast (principal)
CPT/HCPCS: 19083; 88305; 88342

== ENCOUNTER 2022-12-17 07:59 | Outpatient (CLI) | payer BC, SELFPAY ==
[2022-12-17 08:12] LABS: Hematocrit 44.6 % (35.0-49.0); Hemoglobin 15.4 g/dL (12.0-15.0); Mean Corpuscular HGB Conc 34.5 g/dL (32.0-36.0); Mean Corpuscular Hemoglobin 31.3 pg (27.0-31.0); Mean Corpuscular Volume 90.7 fL (78.0-102.0); Mean Platelet Volume 8.7 fl (9.2-11.8); Platelet Count Result 250 K/mm3 (150-420); Red Blood Count 4.92 M/mm3 (4.20-5.40); Red Cell Distribution Width 12.9 % (11.6-14.4); White Blood Count 5.9 K/mm3 (4.8-10.8)
[2022-12-17 08:13] LABS: Appearance Urine Clear (Clear); Bilirubin Urine Negative (Negative); Blood Urine 2+ (Negative); Color Urine Light Yellow (Yellow); Glucose Urine UA Negative (Negative); Ketones Urine Negative (Negative); Leukocyte Esterase Ur Trace LEU/UL (Negative); Nitrate Urine Negative (Negative); Protein Urine Negative (Negative); Urobilinogen Urine 0.2 mg/dL (0.2-1.0)
[2022-12-17 08:34] LABS: Add Urine Microscopic? YES; Bacteria Urine Trace /hpf; Squamous Epithelial Cell Urine Few /hpf (Few); WBC Urine 0-3 /hpf (0-3)
[2022-12-17 08:35] LABS: Band Neutrophils Percent 0 % (0-6); Eosinophils Absolute Manual 0.05 K/mm3 (0.02-0.5); Eosinophils Percent Manual 1 % (1-6); Lymphocytes Absolute Manual 1.29 K/mm3 (1.1-4.5); Lymphocytes Percent Manual 22 % (18-44); Monocytes Absolute Manual 0.59 K/mm3 (0.1-0.90); Monocytes Percent Manual 10 % (3-9); Neutrophils Absolute Manual 3.95 K/mm3 (1.7-7.2); Neutrophils Percent Manual 67 % (46-73); Platelet Estimate Adequate (Adequate); Total Cells Counted 100
[2022-12-17 09:00] LABS: Alanine Aminotransferase 35 U/L (14-59); Albumin Level 4.1 g/dL (3.4-5.0); Alkaline Phosphatase 54 U/L (46-116); Anion Gap 9 mmol/L (8-16); Aspartate Amino Transferase 28 U/L (15-37); Bilirubin,Total 0.6 mg/dL (0.00-1.00); Blood Urea Nitrogen 13 mg/dL (7-18); Calcium 9.9 mg/dL (8.5-10.1); Carbon Dioxide 27 mmol/L (21-32); Chloride 104 mmol/L (98-108); Cholesterol 181 mg/dL (0-200); Creatine Kinase 51 U/L (26-192); Estimated Glomerular Filt Rate 50; Free T3 3.33 pg/mL (2.18-3.98); Free T4 Free Thyroxine 1.17 ng/dL (0.76-1.46); Glucose 106 mg/dL (70-99); HDL Direct 39 mg/dL (40-60); LDL Cholesterol Calculated 99 mg/dL (<130); Osmolality Calculated 290 mOsm/kg (285-295); Potassium 4.3 mmol/L (3.5-5.1); Sodium 140 mmol/L (136-145); Thyroid Stimulating Hormone 1.84 uIU/mL (0.36-3.74); Triglycerides 217 mg/dL (0-150)
== END 2022-12-17 08:00 | disposition home or self-care (01) ==
LOC: CHSLAB 08:01
PROVIDERS: PCP Internal Medicine; Visit Provider Internal Medicine
DX: N39.0 Urinary tract infection, site not specified (principal); I10 Essential (primary) hypertension; E78.5 Hyperlipidemia, unspecified; E03.9 Hypothyroidism, unspecified
CPT/HCPCS: 36415; 80053; 80061; 81001; 82550; 84439; 84443; 84481; 85025

== ENCOUNTER 2023-06-01 10:15 | Emergency (ER) | payer BC, SELFPAY ==
--- NOTE | 2023-06-01 10:21 | ED.URI ---
HPI - URI/Sore Throat General Chief Complaint: Upper Respiratory Infection Stated Complaint: SINUS CONGESTION Time Seen by Provider: 06/01/23 10:21 Source: patient Mode of arrival: ambulatory Limitations: no limitations History of Present Illness HPI Narrative: Mabel is a 42-year-old female patient presenting to the clinic today with complaints of sinus congestion x8 days. She reports no known fever but has had headaches and a nonproductive cough. MD elicited complaint: cough, rhinorrhea, nasal congestion and sinus pain Related Data Home Medications Medication Instructions Recorded Confirmed acetaminophen 500 mg capsule 1,000 mg PO Q6H PRN pain 08/14/20 09/09/22 amlodipine 10 mg tablet 10 mg PO HS 08/14/20 06/01/23 rosuvastatin 5 mg tablet 2.5 mg PO HS 08/14/20 09/09/22 multivitamin with minerals-folic 1 tablet PO DAILY 10/23/20 06/01/23 acid 0.4 mg tablet (Adult One Daily Multivitamin) Allergies Allergy/AdvReac Type Severity Reaction Status Date / Time No Known Allergies Allergy Verified 06/01/23 10:34 Review of Systems Review of Systems: Pertinent positives per HPI. Patient denies any fever, chills, rash, visual changes, dizziness, shortness of breath, chest pain, palpitations, nausea, vomiting, diarrhea, constipation, abdominal pain, or any urinary issues. [facility] Past Medical History Medical History Hyperlipidemia Hypertension Obesity Family History Family History Mother Patient's mother is in good health Father Patient's father is in good health Sibling Patient's sister is in good health Grandparent Diabetes mellitus Social History Social History Smoking packs per day: 1 Smoking cigarettes per day: 20.0 Years smoked: 8 Smoking pack-years: 8.00 Smoking status: Former smoker Tobacco type: cigarettes Second hand tobacco smoke exposure: No Smoking end date: 11/06/06 Alcohol intake: current Drinks per week: 1 Alcohol use details: MIXED DRINK Substance use: never Substance use type: does not use Last use: 2005 Lack of Transportation: No Lack of Food: Never True Current Housing: I Have Housing Concerned About Future Housing: No Difficulty Paying Gas/Electric Bills: No Difficulty Paying for Meds: No Currently Unemployed: No Education: Associate Degree Difficulty w/ Childcare or Family Care: No Living arrangements: with family Spiritual care concerns: No Comments At the time of my signature, I reviewed and agree with the nursing past medical, surgical, social, and family history. There is no relevant family history pertinent to the patient complaint. Exam Narrative: General: Well-developed, well nourished, in no apparent distress Head: Normocephalic, atraumatic Eyes: Pupils equally round and reactive to light bilaterally, EOM intact, sclera and conjunctive clear, no discharge, lids normal Ears: TMs intact and congested, ear canals clear, no drainage, grossly hearing normal. Nose: Nares patent, yellow nasal discharge, moderate inflammation, maxillary sinus tenderness. Mouth: Oral pharynx without lesions or masses, good dentition, MMM. Postnasal drip Neck: Supple, trachea midline, no enlargement of anterior or posterior cervical nodes, no thyroid masses or goiter palpable. Cardio: Regular rate and rhythm, s1 and s2 normal, no murmur appreciated. Resp: Clear to auscultation bilaterally, no rhonchi, rales, wheezing or rubs Course Course Emergency Course: Portions of this record may have been created with voice recognition software. Level of Care: Express Care Visit Vital Signs Vital signs: Vital Signs Temperature 36.8 C 06/01/23 10:37 Pulse Rate 91 06/01/23 10:37 Respiratory Rate 16 06/01/23 10:37 Blood Pressure 144/93 H 06/01/23
[2023-06-01 10:37] VITALS: BP 144/93; PULSE 91; RESP 16; TEMP 36.8; O2SAT 100
== END 2023-06-01 11:00 | disposition home or self-care (01) ==
PROVIDERS: Emergency Provider Nurse Practitioner Family; PCP Internal Medicine
DX: J01.00 Acute maxillary sinusitis, unspecified (principal); Z87.891 Personal history of nicotine dependence; E78.5 Hyperlipidemia, unspecified; I10 Essential (primary) hypertension; E66.9 Obesity, unspecified; Z68.33 Body mass index [BMI] 33.0-33.9, adult
CPT/HCPCS: 99213; G0463

== ENCOUNTER 2023-07-22 08:43 | Outpatient (CLI) | payer BC, SELFPAY ==
--- NOTE | ~2023-07-22 | MMUS_ITS ---
EXAMINATION: MM diagnostic akosua BI w krzysztof, US breast LT limited HISTORY: Radius benign left breast biopsy TECHNIQUE: Additional 3-D tomosynthesis images of the breasts were performed and synthetic 2-D images were generated. CAD analysis was submitted and interpreted. High resolution Limited left breast ultr asound was performed. COMPARISON: Comparison to multiple prior studies sequentially, with oldest reviewed study dated 01/05. BREAST PARENCHYMAL COMPOSITION: Not dense: There are scattered areas of fibroglandular density. FINDINGS: MAMMOGRAPHIC FINDINGS: The right breast is stable without evidence for malignancy. There is an enlarging mass in the upper o uter quadrant of the left breast with associated tissue marker from previous benign biopsy. There is asymmetric fibroglandular tissue in the upper outer quadrant. ULTRASOUND: Limited left breast ultrasound: There is an enlarging mass at the 1:00 position, 7 cm from the nipple measuring 2.8 x 1.5 x 2.5 cm compared with 2.1 x 1.1 x 1.8 cm on prior examination. There is a new h eterogeneous 7 mm mass in the left breast near the nipple. No definite mammographic correlate. IMPRESSION: 1. New 7 mm left breast mass near the nipple. Enlarging mass at 1:00, 7 cm from the nipple. Repeat bi opsy of the dominant mass recommended with biopsy of the smaller new mass. 2. Recommend left breast biopsies. BI-RADS category 4, suspicious findings. Reviewed, dictated and finalized at location B. IMPRESSION: 1. New 7 mm left breast mass near the nipple. Enlarging mass at 1:00, 7 cm from the nipple. Repeat biopsy of the dominant mass recommended with biopsy of the smaller new mass. 2. Recommend left breast biopsies. BI-RADS category 4, suspicious findings.
== END 2023-07-22 08:44 ==
LOC: MICIMG 08:44
PROVIDERS: PCP Surgery; Visit Provider Physician Assistant Surgical
DX: R92.8 Other abnormal and inconclusive findings on diagnostic imaging of breast (principal); N63.21 Unspecified lump in the left breast, upper outer quadrant
CPT/HCPCS: 76642; 77062; 77066; G0279

== ENCOUNTER 2023-09-22 09:26 | Outpatient (CLI) | payer BC, SELFPAY ==
--- NOTE | ~2023-09-22 | MMUS_ITS ---
US breast biopsy LT w image, MM post biopsy diagnostic LT EXAMINATION: US GUIDED NEEDLE BIOPSY WITH VACUUM ASSISTANCE DATE: 09/22/2023 11:26 CDT INDICATION: Left breast mass seen in the subareolar location on prior examination. Ultrasound-guided core biopsy is requested to evaluate for malignancy. TECHNIQUE AND FINDINGS: The risks and potential benefits of the procedure were discussed with the patient, and written inform ed consent was obtained. After sterile preparation of the left breast, 1% lidocaine was utilized for local anesthesia. 1% lidocaine with epinephrine was used for deep anesthesia. A 10G vacuum-assisted biopsy gun needle was advanced through to the outer edge of the region of inter est from a lateral inferior approach utilizing sonographic guidance. A total of 4 tissue core sample s were obtained through the lesion. An Inrad tissue marker clip was then placed at the biopsy site. Hemostasis was achieved. The patient tolerated procedure well and there was no evidence of immediate complication. The patien t was given verbal instructions partly is from the department. Left breast mammograms to document ti ssue marker clip placement. The tissue samples were submitted to surgical pathology for histologic an alysis. IMPRESSION: 1. Successful ultrasound-guided vacuum-assisted biopsy of left breast mass with tissue marker placem ent. Please refer to pathology report for histologic analysis. Reviewed, dictated and finalized at location B. IMPRESSION: 1. Successful ultrasound-guided vacuum-assisted biopsy of left breast mass wit h tissue marker placement. Please refer to pathology report for histologic anal ysis.
== END 2023-09-22 09:27 | disposition home or self-care (01) ==
PROVIDERS: PCP Surgery; Visit Provider Surgery
DX: N63.20 Unspecified lump in the left breast, unspecified quadrant (principal); D24.2 Benign neoplasm of left breast
CPT/HCPCS: 19083; 77065; 88305; 88342; A4648

== ENCOUNTER 2023-10-29 07:48 | Outpatient (CLI) | payer BC, SELFPAY ==
--- NOTE | ~2023-10-29 | MMUS_ITS ---
EXAMINATION: MM post biopsy diagnostic LT, US_MAGSEEDLT_US INDICATION: Intraductal papilloma left breast TECHNIQUE: The procedure for a ultrasound -guided Magseed localization was discussed with the patient . Risks discussed included bleeding and infection. The patient verbalized understanding and agreed to proceed. The time out was performed to verify the patient's name, date of , and site of procedure. The s kin overlying the left breast was prepared in usual fashion. Utilizing ultrasound guidance, the needl e was advanced into the left breast. Confirmation of Magseed position was achieved with ultrasound an d subsequent mediolateral and craniocaudal mammogram. The patient tolerated procedure without immedia te complication. BREAST PARENCHYMAL COMPOSITION: Not dense: There are scattered areas of fibroglandular density. FINDINGS: Ultrasound and mammographic images demonstrate deployment of the Magseed device of the left breast in the subareolar location. There is a persistent unchanged mass in the upper outer quadrant of the left breast containing a tissue marker. IMPRESSION: 1. Successful ultrasound-guided left breast Magseed localization. Post procedure mammogram for marker placement. Reviewed, dictated and finalized at location B. IMPRESSION: 1. Successful ultrasound-guided left breast Magseed localization. Post procedur e mammogram for marker placement.
== END 2023-10-29 07:49 | disposition home or self-care (01) ==
PROVIDERS: Visit Provider Surgery
DX: D24.2 Benign neoplasm of left breast (principal)
CPT/HCPCS: 19285; 77065; A4648

== ENCOUNTER 2023-12-09 08:16 | Outpatient (CLI) | payer OTHER, SELFPAY ==
--- NOTE | 2023-12-09 08:26 | ECG_ITS ---
Test Date: 2023-12-09 08:44:32 Measurements Intervals [place] Rate: 75 P: 9 WI: 149 QRS: 22 QRSD: 92 T: 56 QT: 365 QTc: 409 Interpretive Statements SINUS RHYTHM MINIMAL Q WAVES- INFERIOR LEADS BORDERLINE ECG No previous ECG available for comparison Electronically Signed On 12-09-2023 10:39:25 CDT by Elio Carter D.O.
== END 2023-12-09 08:17 | disposition home or self-care (01) ==
PROVIDERS: PCP Internal Medicine; Visit Provider Surgery
DX: I10 Essential (primary) hypertension (principal); Z01.818 Encounter for other preprocedural examination; R94.31 Abnormal electrocardiogram [ECG] [EKG]
CPT/HCPCS: 93005

== ENCOUNTER 2023-12-10 02:04 | Day surgery (SDC) | payer OTHER, SELFPAY ==
--- NOTE | 2023-12-04 15:13 | SUR.PREOP ---
Report to the Outpatient Waiting Room, entrance under the green pavilion located off [facility], at time 0600 on date 12/10/23. Planned Procedure Time: 0730.? Time changes happen often and if your time is changed the preop area will call you the afternoon before. - You and your visitor will be asked to self-screen and do not enter if you have any COVID symptoms. Please call surgeon if you need to reschedule. - A mask is optional within the hospital at this time. Patients may have clear liquids (water, carbonated beverages, clear teas, apple juice) until 3 hours prior to surgery with a maximum of 20 ounces. - No food from midnight until time of surgery and no smoking - Infants may have breast milk until 4 hours before surgery, infant formula 6 hours prior to surgery. - Children will be allowed to drink immediately following surgery.? If applicable, please bring a bottle or sippy cup to assist with drinking. Juice, water, soda, and popsicles are readily available.? For infants on formula, please bring formula the day of surgery.? Pacifiers are allowed. Take only the following medications with a SIP of water on the morning of surgery: N/A DO NOT STOP ANY OF YOUR OTHER PRESCRIPTION MEDICATIONS PRIOR TO SURGERY EXCEPT THE FOLLOWING Medications to discontinue per physician STOP ALL VITAMINS AND SUPPLIMENTS 3 DAYS BEFORE PROCEDURE Date to take last dose 12/06/23 Please no make-up, nail norwegian, hairspray, perfume, deodorant, or body powder the day of surgery.? No jewelry (including any body piercings) or valuables the day of surgery, leave them at home.? Please take a shower or bath the night before, or the morning of, surgery with an antibacterial soap.? Wear comfortable, loose fitting clothing.? Children are encouraged to wear pajamas. - Jewelry must be removed prior to entering the operating room.? Rings and piercings that are not removed may be cut off. - The hospital will not accept responsibility for valuables.? - Please leave all valuables, including medications, at home the day of surgery. If you are going home after surgery, a licensed driver sales must drive you home.? - NO public transportation without another adult if you receive anesthesia. - We recommend that an adult stay with you for 24 hours following discharge. - We also recommend that you do not drive, make important decision, drink alcoholic beverages, or take any drugs that were not prescribed by your health care provider for at least 24 hours after your discharge time. For Pediatric surgeries, we recommend two adults accompany the child home. Follow any additional instructions given to you from your surgeon. Telephone instructions given to SMITA CARPENTER and asked if any additional questions and then verbalized understanding. Patient advised to call surgeon office or pre surgery nurse liaison [phone] if any additional questions.
[2023-12-04 15:27] VITALS: BMI 33.9
[2023-12-10] VITALS (11 sets, daily range): BP systolic 124–159; BP diastolic 80–94; PULSE 76–96; RESP 12–20; TEMP 36.2; O2SAT 93–100
--- NOTE | ~2023-12-10 | MM_ITS ---
MM_FAXITRON_MG 12/10/2023 11:57 Indication: Postbiopsy specimen radiographs Procedure: 3 separate postbiopsy specimens submitted Comparison: Mammogram dated 10/29/2023 Findings: First specimen contains magseed device. A third specimen contains a large circumscribed mas s with associated coil marker. Impression: 1: Post biopsy specimens containing magseed device, tissue markers and left breast mass originating f rom the upper outer quadrant of the left breast. Please refer to procedural report for details. Reviewed, dictated and finalized at location B. Impression: 1: Post biopsy specimens containing magseed device, tissue markers and left samy ast mass originating from the upper outer quadrant of the left breast. Please r efer to procedural report for details.
[2023-12-10] MEDS: ACETAMINOPHEN 500 MG TABLET 1000 MG PO (07:03)
[2023-12-10] MEDS: LACTATED RINGERS 1,000 ML 30 ML IV CONT ×2 (07:05→09:26)
--- NOTE | 2023-12-10 07:14 | PM.IMHP ---
H&P: HPI History of Present Illness Date/Time: 12/10/23 07:14 Chief Complaint: 43-year-old female previously evaluated for a left breast mass, and she underwent a core needle biopsy of this mass last summer and this was shown to be a fibroadenoma located at 1 o'clock position 7 cm from the nipple. The mass has now increased in size to 2.8 x 1.5 x 2.5 cm previously 2.1 x 1.1 x 1.8, and she was recommended to have an excisional biopsy of this mass to rule out phyllodes tumor. She was also found to have a 7 mm mass near the nipple and she recently underwent a core needle biopsy of this mass that showed to be a intraductal papilloma. I reviewed the options of management for the intraductal papilloma of the patient. The 2 options I would recommend is either conservative management with a follow-up ultrasound in 6 months to ensure the intraductal papillomas not growing or changing in shape her size, versus excision at the same time of the excision a biopsy of the fibroadenoma. Patient elected to have the intraductal papilloma excised at the same time. She is here today for surgical biopsy of left breast masses x2 (intraductal papilloma and fibroadenoma). Denies any new complaints or concerns today. Review of Systems Review of Systems: All systems reviewed & are unremarkable except as noted in HPI and below PMFSH Past Medical History Medical History Hyperlipidemia Hypertension Obesity Family History Family History Mother Patient's mother is in good health Father Patient's father is in good health Sibling Patient's sister is in good health Grandparent Diabetes mellitus Social History Social History Smoking packs per day: 1 Smoking cigarettes per day: 20.0 Years smoked: 8 Smoking pack-years: 8.00 Smoking status: Former smoker Tobacco type: cigarettes Second hand tobacco smoke exposure: No Smoking end date: 11/06/06 Alcohol intake: current Drinks per week: 1 Alcohol use details: MIXED DRINK Substance use: never Substance use type: does not use Last use: 2005 Lack of Transportation: No Lack of Food: Never True Current Housing: I Have Housing Concerned About Future Housing: No Difficulty Paying Gas/Electric Bills: No Difficulty Paying for Meds: No Currently Unemployed: No Education: Associate Degree Difficulty w/ Childcare or Family Care: No Living arrangements: with family Spiritual care concerns: No Meds Home Medications and Allergies Home Medications Medication Instructions Recorded Confirmed Type amlodipine 10 mg tablet 10 mg PO HS 08/14/20 12/10/23 History multivitamin with minerals-folic 1 tablet PO DAILY 10/23/20 12/10/23 History acid 0.4 mg tablet (Adult One Daily Multivitamin) Allergies Allergy/AdvReac Type Severity Reaction Status Date / Time No Known Allergies Allergy Verified 12/10/23 06:34 Exam Const: General: comfortable and no acute distress HENMT: Face/Nose/Sinus: Normal nares present Eyes: General: appearance normal, both eyes and all related structures Neck: Neck: supple Resp: Effort & Inspection: normal respiratory effort Cardio: Rate: regular rate Skin: General skin exam: normal color Neuro: Speech: normal speech Extrem: General: normal to inspection Psych: Mental Status: mental status grossly normal Assessment and Plan Assessment and plan (1) Fibroadenoma of left breast: Code(s): D24.2 - Benign neoplasm of left breast Status: Acute Assessment and Plan: Biopsy proven fibroadenoma, now growing. Patient elected to proceed with excisional biopsy. (2) Intraductal papilloma of left breast: Code(s): D24.2 - Benign neoplasm of left breast Status: Acute Assessment and Plan: Biopsy proven intr
--- NOTE | 2023-12-10 07:20 | P.PNAN_ITS ---
Anes - Initial Pre Proc Eval Procedure: Operation Date: 12/10/23 07:30 Proposed Procedures p Excisional Biopsy of Left Breast Masses Times Two with Mag Seed Localization, Possible Adjacent Tissue Transfer - Violetta Cui MD Date/Time: 12/10/23 07:20 Surgeon: Violetta Cui MD Pre Op Diagnosis: Benign Neoplasm Left Breast Patient Data Age: 43 Gender: F Height: 1.68 m Weight: 95.25 kg Allergies Allergy/AdvReac Type Severity Reaction Status Date / Time No Known Allergies Allergy Verified 12/10/23 06:34 Home Medications Medication Instructions Recorded Confirmed Type amlodipine 10 mg tablet 10 mg PO HS 08/14/20 12/10/23 History multivitamin with minerals-folic 1 tablet PO DAILY 10/23/20 12/10/23 History acid 0.4 mg tablet (Adult One Daily Multivitamin) Patient hx anesthesia problems: none Family hx anesthesia problems: none Results Review: All pre-operative results and documents have been reviewed as part of the pre- operative evaluation. [facility] Past Medical History Medical History Hyperlipidemia Hypertension Obesity Family History Family History Mother Patient's mother is in good health Father Patient's father is in good health Sibling Patient's sister is in good health Grandparent Diabetes mellitus Social History Social History Smoking packs per day: 1 Smoking cigarettes per day: 20.0 Years smoked: 8 Smoking pack-years: 8.00 Smoking status: Former smoker Tobacco type: cigarettes Second hand tobacco smoke exposure: No Smoking end date: 11/06/06 Alcohol intake: current Drinks per week: 1 Alcohol use details: MIXED DRINK Substance use: never Substance use type: does not use Last use: 2005 Lack of Transportation: No Lack of Food: Never True Current Housing: I Have Housing Concerned About Future Housing: No Difficulty Paying Gas/Electric Bills: No Difficulty Paying for Meds: No Currently Unemployed: No Education: Associate Degree Difficulty w/ Childcare or Family Care: No Living arrangements: with family Spiritual care concerns: No Anes - Eval Final PreProcedure Day of Procedure 12/10/23 07:20 Patient weight: obese Heart: regular rate and rhythm Lungs: clear to auscultation Airway: Mallampati scale class II Neurological: alert and oriented Last oral intake: >/= 8 hours ASA classification: III Emergent: no Anesthetic plan: proceed Anesthesia type and monitoring: general LMA and ETT and standard monitoring Results Review: All pre-operative results and documents have been reviewed as part of the pre- operative evaluation. Informed Consent: The patient's anesthetic plan and its attendant risks and benefits were discussed with the patient/family/POA. Questions were solicited and answers provided to the satisfaction of the patient/family/POA.
--- NOTE | 2023-12-10 07:20 | WPDHPUPDATE1 ---
History and Physical Update Update Date/Time: 12/10/23 07:20 History and Physical has been reviewed, including an updated exam of the patient. There are NO changes in the patient's condition. Risks, benefits, and alternatives have been discussed and questions answered. Patient agrees to proceed with procedure.
[2023-12-10] MEDS: ceFAZolin 2 GM/D5W 50 ML 2 GM/50 ML BAG IVPB (07:30)
[2023-12-10] MEDS: BUPIVACAINE/EPINEPHRINE 0.5% 10 ML VIAL 20 ML INFILTRATE (07:30)
--- NOTE | 2023-12-10 09:30 | W.PM.PROC2 ---
Procedure Note - Detailed Date of Procedure 12/10/23 Pre-op Diagnosis 1. Enlarging biopsy proven left breast fibroadenoma 2. Biopsy proven intraductal papilloma of the left breast Post-op Diagnosis Same Procedure Performed 1. Left lumpectomy with magseed localization of subareolar intraductal papilloma 2. Left breast excisional biopsy of enlarging fibroadenoma Surgeon Violetta Cui MD Crinkling Machine Operator Chio Sandoval PA-C Anesthesia General Description of Procedure Patient was identified in the pre-operative area and brought to the OR suite. She underwent tumor localization previously by IR with magseed placement. She was laid supine in the operating table and sequential compression devices were applied. General anesthesia was induced without difficulties. The left chest was prepped and draped in a sterile fashion. The sentimag probe was used to identify the area where the magseed was placed and a superior periareolar incision was made. Dissection was carried down through the subcutaneous tissue into the breast tissue. The area of concern was identified using the sentimag probe, and a rim of normal breast tissue was excised along with the tumor as our lumpectomy specimen. Once the specimen was completely excised, it was oriented using surgical paint according to hazard waste handler instructions. The specimen was placed in the faxitron and 2 radiographs were obtained and sent to Radiology for radiographic confirmation of Tumor, biopsy marker and magseed within the specimen. Unfortunately, it appeared that the biopsy clip was not within the specimen, and I proceeded to excise an additional medial margin, which was the closes to the magseed on faxitron images. The biopsy clip was again not visualized in the additional specimen, and was most likely inadvertently suctioned during hemostasis. Once the radiographic confirmation was received, the wound was irrigated with saline and hemostasis was assured. Attention was then turned to the large palpable fibroadenoma in left upper outer quadrant. A small circumlinear incision was made on the lateral IMF region and dissection was carried down through the subcutaneous tissue and breast tissue towards the mass. This was completely excised en bloc, and a faxitron image was obtained to verify the biopsy clip within the clip. Once this was verified, the cavity was irrigated with saline and hemostasis was assured. For both incisions, the deep dermal layer was approximated using interrupted 3-0 vicryl followed by 4-0 monocryl for the skin. Dermabond was applied followed by a surgical bra. Patient was awoken from anesthesia and taken to the recovery area in stable condition. All needles, instruments and sponge counts were correct as reported by the operating room staff. Patient tolerated the procedure well with no immediate complications. Chio Sandoval PA-C was required for positioning and retraction throughout the entire case. Estimated Blood Loss 10 Drains No Pathology Yes Complications No immediate complications Condition Stable Disposition PACU [facility] Billing Surgery - Charge Forward: Surgery Billing (CPT 14317, [id number] - 02)
[2023-12-10] MEDS: ONDANSETRON INJ 4 MG/2 ML VIAL IV PUSH (09:51)
[2023-12-10] MEDS: diphenhydrAMINE HCl INJ 50 MG/ML VIAL 12.5 MG IV PUSH (10:13)
[2023-12-10] MEDS: SCOPOLAMINE 1 MG PATCH 1 PATCH TRANSDERM (10:15)
[2023-12-10] MEDS: fentaNYL CITRATE INJ (*CRX) 100 MCG/2 ML VIAL 25 MCG IV PUSH (10:53)
[2023-12-10] MEDS: oxyCODONE HCL (*CRX) 5 MG TAB IR PO (11:25)
== END 2023-12-10 12:01 | disposition home or self-care (01) ==
PROVIDERS: PCP Internal Medicine; Visit Provider Surgery
PROC: (CPT 19301; principal; 2023-12-10 07:30)
DX: D24.2 Benign neoplasm of left breast (principal); I10 Essential (primary) hypertension; E78.5 Hyperlipidemia, unspecified; E66.9 Obesity, unspecified; Z68.34 Body mass index [BMI] 34.0-34.9, adult; Z87.891 Personal history of nicotine dependence
CPT/HCPCS: 19301; 19120; 76098; 88307; 88342; 93005; A9270; J0690; J1100; J1200; J2250; J2405; J2704; J3010; J7120

== ENCOUNTER 2024-08-07 08:18 | Outpatient (CLI) | payer BC, SELFPAY ==
[2024-08-07 08:34] LABS: Basophils Absolute Auto 0.08 K/mm3 (0.00-0.10); Basophils Percent Auto 1.3 % (0.0-1.0); Eosinophils Absolute Auto 0.22 K/mm3 (0.02-0.50); Eosinophils Percent Auto 3.7 % (1.0-6.0); Hematocrit 46.4 % (35.0-49.0); Hemoglobin 15.3 g/dL (12.0-15.0); Immature Granulocyte Absolute 0.18 K/mm3 (0.00-0.00); Lymphocytes Absolute Auto 1.28 K/mm3 (1.10-4.50); Lymphocytes Percent Auto 21.5 % (18.0-42.0); Mean Corpuscular Hemoglobin 29.1 pg (27.0-31.0); Mean Corpuscular Volume 88.2 fL (78.0-102.0); Mean Platelet Volume 8.8 fl (9.2-11.8); Monocytes Absolute Auto 0.36 K/mm3 (0.10-0.90); Monocytes Percent Auto 6.1 % (2.0-11.0); Neutrophils Absolute Auto 3.83 K/mm3 (1.70-7.20); Neutrophils Percent Auto 64.4 % (50.0-70.0); Platelet Count Result 247 K/mm3 (150-420); Red Blood Count 5.26 M/mm3 (4.20-5.40); Red Cell Distribution Width 12.7 % (11.6-14.4)
[2024-08-07 08:45] LABS: Add Urine Microscopic? YES; Appearance Urine Clear (Clear); Bilirubin Urine Negative (Negative); Blood Urine 3+ (Negative); Color Urine Light Yellow (Yellow); Glucose Urine UA Negative (Negative); Ketones Urine Negative (Negative); Leukocyte Esterase Ur 1+ (Negative); Nitrate Urine Negative (Negative); Protein Urine Trace (Negative); Specific Grav Ur 1.015 (1.010-1.020); Urobilinogen Urine 0.2 mg/dL (0.2-1.0); pH Urine 6.5 (5.0-8.0)
[2024-08-07 08:51] LABS: Bacteria Urine 1+ /hpf; Squamous Epithelial Cell Urine Many /hpf (Few)
[2024-08-07 09:06] LABS: Hemoglobin A1C 5.5 % (<5.7)
[2024-08-07 09:12] LABS: Alanine Aminotransferase 42 U/L (14-59); Alkaline Phosphatase 73 U/L (46-116); Anion Gap 7 mmol/L (4-12); Aspartate Amino Transferase 19 U/L (15-37); Bilirubin,Total 0.5 mg/dL (0.00-1.00); Blood Urea Nitrogen 13 mg/dL (7-18); Calcium 8.7 mg/dL (8.5-10.1); Carbon Dioxide 28 mmol/L (21-32); Chloride 105 mmol/L (98-108); Cholesterol 177 mg/dL (0-200); Estimated Glomerular Filt Rate 50; Glucose 101 mg/dL (70-99); HDL Direct 43 mg/dL (40-60); LDL Cholesterol Calculated 104 mg/dL (<130); Osmolality Calculated 290 mOsm/kg (285-295); Sodium 140 mmol/L (136-145); Thyroid Stimulating Hormone 1.09 uIU/mL (0.36-3.74); Total Protein 7.1 g/dL (6.4-8.2); Triglycerides 149 mg/dL (0-150)
--- OUTSIDE RECORDS SUMMARY | 2024-08-07 15:55 | XMS_ITS | Data Portability ---
Author Organization [facility] Address [address] [place] [address] [address] [place] [address] Care Team Providers Care Php Architect Name Role Phone EDMUND POLO Primary Care Provider Assessment Encounter Date Assessment Date Assessment LastModified by Organization Details LastModified Time 12/26/2020 12/26/2020 Annual gynecological exam performed. Patient will come back in a year unless there are new symptoms. Not available 12/26/2020 10:27:57 07/22/2022 07/22/2022 Annual gynecological exam performed. Patient will come back in a year unless there are new symptoms. Not available 07/22/2022 09:52:54 07/28/2023 07/28/2023 Annual gynecological exam performed. Patient will come back in a year unless there are new symptoms. [email or web address] Not available 07/28/2023 17:27:21 Plan of Treatment Reminders Order Date Submit Date Provider Last Modified By Organization Details Last Modified Time Details Appointments None record ed. Lab None record ed. Referral None record ed. Procedures None record ed. Surgeries None record ed. Imaging None record ed. Medication Orders None record ed. Patient TargetsNo targets recorded. Patient InstructionsNo instructions recorded. Reason for Referral None Reported. Results Created Date Observation Date Name Description Value Unit Range Abnormal Flag Note LastModifiedBy Organization Detail LastModifiedTime 12/27/19 21 12/26/2020 IMAGE GUIDE D PAP AND HPV REGAR DLESS image guided Pap, HPV regardless of Pap result SEE RESULT S BELOW CASE REPOR T: Cytol ogy Gynec ologi fadi Repor t Case: [id number] Autho surya stanley Provi gurpreet: Ana Laura Rea MD Colle cted: 12/26 1107 Order ing Locat ion: [place] Path[facility] Recei jose juan: 12/27 0113 First Scree n: Francine Winchester Rescr een: Dali Reyez , CT Speci men: Scree darci Pap - Image d, Cervi x STATE MENT OF ADEQU ACY: Satis facto ry for evalu ation Trans forma tion zone compo nent prese nt FINAL DIAGN OSIS: Negat dewey for Intra epith elial Lesio n or Logan rowell (NIL) Funga l organ isms morph ologi olive consi stent with Ruth da spp Elect david jean-baptisteshahbaz anabel d by Dali Reyez , CT on 2020 at 8:08 PM ----- ----- ----- ----- ----- ----- ----- ----- ----- ----- ----- ----- ----- ----- ----- ----- ----- ---- HPV RESUL TS: HPV mRNA E6/E7 : No HPV mRNA Detec mason NOTE: This high risk HPV mRNA assay detec ts fourt een high- risk HPV types (16, 18, 31, 33, 35, 39, 45, 51, 52, 56, 58, 59, 66, 68) witho ut diffe renti ation . COMME NT: Note: This speci men was revie wed by a Cytot echno logis t and/o r Patho logis t (as indic ated in this repor t) after evalu ation using the Thinp rep Imagi ng Syste m. CLINI FADI INFOR MATIO N: Menst rual Statu s: LMP (if appli cable ): 017 Clini fadi Histo ry/Pr eviou s Pap: Type of Neopl morgan (if appli cable ): Signi fican t Clini fadi Findi ngs: Other Histo ry: Hormo jackelin (if appli cable ): PAP EDUCA NARCISO L NOTE: The Pap Test is a scree darci test with an inher ent false negat dewey rate. Liqui d-bas e sampl ing may decre ase, but will not elimi amilcar, false negat dewey resul ts. A negat dewey resul t does not precl ude the prese nce and/o r devel opmen t of disea se, since the prese nce of abnor mal cells in the sampl e depen ds on the locat ion of the lesio n and sampl ing techn ique. Damian nued regul ar scree darci is the best metho d of cance r preve ntion . If repor mason cytol ogic findi ng do not corre late with physi fadi and/o r histo rical findi ngs, furth er inves tigat ion is recom sun d, as clini olive price nted. Not Available [facility] (Lab) [address], [place], [address], 12/29/2020 21:11:11 07/23/19 23 07/22/2022 IMAGE GUIDE D PAP AND HPV REGAR DLESS image guided Pap, HPV regardless of Pap result SEE RESULT S BELOW CASE REPOR T: Cytol ogy Gynec ologi fadi Repor t Case: [id number] Autho surya g Provi gurpreet: Ana Laura Rea MD Colle cted: 07/22 1358 Order ing Locat ion: [place] Patho logy Recei jose juan: 07/23 0140 First Scree n: Elana Cheatham ica Speci men: Scree darci Pap - Image d, Cervi x STATE MENT OF ADEQU ACY: Satis facto ry for evalu ation Trans forma tion zone compo nent prese nt FINAL DIAGN OSIS: Negat dewey for Intra epith elial Lesio n or Logan rowell (NIL) . Funga l organ isms morph ologi olive consi stent with Ruth da spp. Elect david lemons anabel d by Elana Cheatham ica on 2022 at 11:43 AM ----- ----- ----- ----- ----- ----- ----- ----- ----- ----- ----- ----- ----- ----- ----- ----- ----- ---- HPV RESUL TS: HPV mRNA E6/E7 : No HPV mRNA Detec mason NOTE: This high risk HPV mRNA assay detec ts fourt een high- risk HPV types (16, 18, 31, 33, 35, 39, 45, 51, 52, 56, 58, 59, 66, 68) witho ut diffe renti ation . COMME NT: This speci men was revie wed by a Cytot echno logis t and/o r Patho logis t (as indic ated in this repor t) after evalu ation using the Thinp rep Imagi ng Syste m. CLINI FADI INFOR MATIO N: Menst rual Statu s: LMP (if appli cable ): Clini fadi Histo ry/Pr eviou s Pap: Type of Neopl morgan (if appli cable ): Signi fican t Clini fadi Findi ngs: Other Histo ry: Hormo jackelin (if appli cable ): PAP EDUCA NARCISO L NOTE: The Pap Test is a scree darci test with an inher ent false negat dewey rate. Liqui d-bas ed sampl ing may decre ase, but will not elimi amilcar, false negat dewey resul ts. A negat dewey resul t does not precl ude the prese nce and/o r devel opmen t of disea se, since the prese nce of abnor mal cells in the sampl e depen ds on the locat ion of the lesio n and sampl ing techn ique. Damian nued regul ar scree darci is the best metho d of cance r preve ntion . If repor mason cytol ogic findi ng do not corre late with physi fadi and/o r histo rical findi ngs, furth er inves tigat ion is recom sun d, as clini olive price nted. Not Available [facility] (Lab) [address], [place], [address], 07/24/2022 12:46:17 07/28/19 24 07/28/2023 IMAGE GUIDE D PAP AND HPV REGAR DLESS image guided Pap, HPV regardless of Pap result SEE RESULT S BELOW CASE REPOR T: Cytol ogy Gynec ologi fadi Repor t Case: [id number] Autho surya stanley Provi gurpreet: Ana Laura Rea MD Colle cted: 07/27 1704 Order ing Locat ion: [place] Patho logy Recei jose juan: 07/28 0705 First Scree n: Dali Reyez , CT Speci men: Loulou bejarano Pap - Image d, Cervi x STATE MENT OF ADEQU ACY: Satis facto ry for evalu ation Trans forma tion zone compo nent prese nt FINAL DIAGN OSIS: Negat dewey for Intra epith elial Monica arizmendi or Logan rowell (NIL) . Elect david lemons anabel d by Dali Reyez , CT on 2023 at 3:03 PM ----- ----- ----- ----- ----- ----- ----- ----- ----- ----- ----- ----- ----- ----- ----- ----- ----- ---- HPV RESUL TS: HPV mRNA E6/E7 : No HPV mRNA Detec mason NOTE: This high risk HPV mRNA assay detec ts fourt een high- risk HPV types (16, 18, 31, 33, 35, 39, 45, 51, 52, 56, 58, 59, 66, 68) witho ut diffe renti ation . COMME NT: This speci men was revie wed by a Cytot echno logis t and/o r Patho logis t (as indic ated in this repor t) after evalu ation using the Thinp rep Imagi ng Syste m. CLINI FADI INFOR MATIO N: Menst rual Statu s: LMP (if appli cable ): Clini fadi Histo ry/Pr eviou s Pap: Type of Neopl morgan (if appli cable ): Signi fican t Clini fadi Findi ngs: Other Histo ry: Hormo jackelin (if appli cable ): PAP EDUCA NARCISO L NOTE: The Pap Test is a scree darci test with an inher ent false negat dewey rate. Liqui d-bas ed sampl ing may decre ase, but will not elimi amilcar, false negat dewey resul ts. A negat dewey resul t does not precl ude the prese nce and/o r devel opmen t of disea se, since the prese nce of abnor mal cells in the sampl e depen ds on the locat ion of the lesio n and sampl ing techn ique. Damian nued regul ar scree darci is the best metho d of cance r preve ntion . If repor mason cytol ogic findi ng do not corre late with physi fadi and/o r histo rical findi ngs, furth er inves tigat ion is recom sun d, as clini olive warra nted. Not Available [facility] (Lab) [address], [place], [address], 07/31/2023 16:07:56 01/19/2001/17/2021 MAMMO , scree darci, bilat eral No observ ation record ed. [facility] [address], [place], [address], 01/19/2021 11:52:26 01/19/2001/17/2021 MAMMO , scree darci, bilat eral No observ ation record ed. [facility] [address], [place], [address], 01/19/2021 12:02:24 02/24/20 21 01/17/2021 MAMMO , scree darci, bilat eral No observ ation record ed. [email or web address] [address], [place], [address], 02/26/2021 11:04:46 08/07/19 23 08/06/2022 MAMMO , scree darci, bilat eral No observ ation record ed. [facility] [address], [place], [address], 08/07/2022 12:45:52 08/08/19 23 08/06/2022 MAMMO , scree darci, bilat eral No observ ation record ed. [facility] [address], [place], [address], 08/08/2022 13:40:33 08/31/19 23 08/29/2022 MAMMO , diagn ostic , digit al, unila teral No observ ation record ed. [email or web address] [facility] [address], [place], [address], 09/16/2022 11:06:13 08/31/19 23 08/29/2022 MAMMO , diagn ostic , digit al, unila teral No observ ation record ed. [email or web address] [facility] [address], [place], [address], 08/30/2022 13:26:58 Result Notes Documentation Provider Name and Address Organization Details Recorded Time Pap, Ig + Hr Hpv : Yeast A Ashly [facility], [place] - [facility] 01/03/2021 16:13:55 Problems Name Problem SNOMED Code Status Onset Date Resolution Date Notes Provider Name and Address Organization Details Recorded Time Cyst of ovary Active 2018 Unspecif ied ovarian cyst, unspecif ied side;Rec orded Elsewher e: No Locat ion: [facility] S ource: EHR Program Analyst mariia: N Practi ce ID: 0001 Tello lable Time: 01:30:00 PM Not Available [facility] 0 21:52:48 Disorder of uterus [id number] Completed 201812/26/2020 Disorder of uterus;R ecorded Elsewher e: No Locat ion: [facility] N Ruddyti ce ID: 0001 Tello lable Time: 01:30:00 PM Leticia mclaughlin [facility] 1 10:29:58 Imaging result abnormal [id number] Completed 201612/26/2020 Abnormal findings on diagnost ic imaging of body structur es;Recor ded Elsewher e: No Locat ion: [facility] S ource: EHR Program Analyst mariia: N Ruddyti ce ID: 0001 Tello lable Time: 12:00:00 PM Leticia Ruvalcaba [facility] 1 10:30:43 Lesion of ovary Active 2017 Other ovarian cyst, right side;Rec orded Elsewher e: No Locat ion: [facility] S ource: [facility] mariia: N Ruddyti ce ID: 0001 Tello lable Time: 11:30:00 AM Not Available [facility] 0 21:52:48 Adult health examinat ion Completed 201412/26/2020 ROUTINE MEDICAL EXAM;Rec orded Elsewher e: No Locat ion: [facility] S ource: [facility] mariia: N Ruddyti ce ID: 0001 Tello lable Time: 03:30:00 PM Leticiamiranda Ruvalcaba [facility] 1 10:29:22 Clinical finding Completed 201612/26/2020 Presence of (intraut erine) contrace ptive device;R ecorded Elsewher e: No Locat ion: [facility] S ource: [facility] mariia: N Practi ce ID: 0001 Tello lable Time: 10:00:00 AM Leticia Ruvalcaba [facility] [address] 10:29:[address] Concept Completed 201812/26/2020 Encntr for nurse obgyn exam (general ) (routine ) w/o abn findings ;Recorde d Elsewher e: No Locat ion: [facility] S ource: [facility] mariia: N Ruddyti ce ID: 0001 Tello lable Time: 09:30:00 AM Leticia Ruvalcaba [facility] 1 10:30:48 Lesion of ovary Completed 201812/26/2020 Other ovarian cyst, left side;Rec orded Elsewher e: No Locat ion: [facility] S ource: [facility] mariia: N Ruddyti ce ID: 0001 Tello lable Time: 09:00:00 AM Leticia Ruvalcaba [facility] 1 10:29:54 Pregnanc y test negative [id number] Completed 201612/26/2020 Encounte r for pregnanc y test, result negative ;Recorde d Elsewher e: No Locat ion: [facility] S ource: [facility] mariia: N Ruddyti ce ID: 0001 Tello lable Time: 10:00:00 AM Leticia [facility] 10:30:41 Contrace ptive sheath status [id number] Completed 201612/26/2020 IUD follow up;Recor ded Elsewher e: No Locat ion: [facility] S ource: [facility] mariia: N Ruddyti ce ID: 0001 Tello lable Time: 12:00:00 PM Leticia Ruvalcaba [facility] 1 10:29:48 Speciali zed medical examinat ion Completed 201212/26/2020 Gynecolo gical Examinat ion;Osmany rded Elsewher e: No Locat ion: [facility] S ource: [facility] mariia: N Ruddyti ce ID: 0001 Tello lable Time: 02:30:00 PM Leticia [facility] 10:30:50 Screenin g for malignan t neoplasm of cervix Completed 201212/26/2020 Screenin g for malignan t neoplasm s of the cervix;R ecorded Elsewher e: No Locat ion: [facility] S ource: EHR Program Analyst mariia: N Practi ce ID: 0001 Tello lable Time: 02:30:00 PM Leticia mclaughlin [facility] 1 10:30:38 Insertio n of intraute rine contrace ptive device Completed 201612/26/2020 Encounte r for insertio n of intraute rine contrace ptive device;R ecorded Elsewher e: No Locat ion: [facility] S ource: EHR Program Analyst mariia: N Practi ce ID: 0001 Tello lable Time: 10:00:00 AM Leticia Ruvalcaba [facility] 1 10:30:35 Clinical finding Completed 201812/26/2020 Abnormal findings on dx imaging of oth body structur es;Pract ice ID: [address] [facility] 1 10:29:[address] Concept Completed 201612/26/2020 Encntr for general adult medical exam w/o abnormal findings ;Recorde d Elsewher e: No Locat ion: [facility] S ource: EHR Program Analyst mariia: N Practi ce ID: 0001 Tello lable Time: 11:30:00 AM Leticia Ruvalcaba [facility] 1 10:30:46 Finding of menstrua l bleeding Completed 201612/26/2020 Menorrha maikel;Osmany rded Elsewher e: No Locat ion: [facility] S ource: EHR Program Analyst mariia: N Practi ce ID: 0001 Tello lable Time: 11:30:00 AM Leticia Ruvalcaba [facility] 1 10:30:52 Problem Notes None recorded. Procedures Surgical History Date Name Laterality Status Provider Name and Address Organization Details Recorded Time 07/23/19 Date of Last Pap Smear completed Jonna Carr [facility] 07/28/2023 17:28:34 08/06/19 ureterorenoscopy with fragmentation and removal of calculus of kidney completed Jonna Bruno [facility] 07/28/2023 17:29:10 Imaging Results Imaging Date Name Status LastModified by Organiz ation Details LastModified Time 01/17/2021 MAMMO, screening, bilateral completed [facility] [address], [place], [address], 01/19/2021 11:52:26 01/17/2021 MAMMO, screening, bilateral completed [facility] [address], [place], [address], 01/19/2021 12:02:24 01/17/2021 MAMMO, screening, bilateral completed [facility] [address], [place], [address], 02/26/2021 11:04:46 08/06/2022 MAMMO, screening, bilateral completed [facility] [address], [place], [address], 08/07/2022 12:45:52 08/06/2022 MAMMO, screening, bilateral completed [facility] [address], [place], [address], 08/08/2022 13:40:33 08/29/2022 MAMMO, diagnostic, digital, unilateral completed [email or web address] [facility] [address], [place], [address], 09/16/2022 11:06:13 08/29/2022 MAMMO, diagnostic, digital, unilateral completed [email or web address] [facility] [address], [place], [address], 08/30/2022 13:26:58 Procedure Notes None recorded. Medical Equipment None Reported. Allergies No known drug allergies Medications Name Sig Start Date Stop Date Status Note LastModified by Organization Details LastModified Time Mirena 21 mcg/24 hr (up to 8 years) 52 mg intrauter ine device 2016 active Prescrib ed Elsewher e: Yes Loca tion: [facility] odify By: [email or web address] Isaias ncounter DateTime : 02/26/20 17 12:00:00 PM Not Available Not Available Not Available fluconazo le 150 mg tablet TAKE 1 TABLET BY MOUTH FOR 1 DOSE 07/18 completed Not Available Not Available Not Available hydrocodo ne 5 mg-acetam inophen 325 mg tablet 1 TO 2 TABLET BY MOUTH 4 TIMES DAILY NEEDED 12/26 completed Not Available Not Available Not Available prednison e 20 mg tablet TAKE 2 TABLETS BY MOUTH DAILY FOR 5 DAYS 07/27 completed Not Available Not Available Not Available sulfameth oxazole 800 mg-trimet hoprim 160 mg tablet TAKE 1 TABLET BY MOUTH TWICE DAILY 12/26 completed Not Available Not Available Not Available tramadol 50 mg tablet TAKE 1 TABLET BY MOUTH EVERY 6 HOURS NEEDED 12/26 completed Not Available Not Available Not Available tamsulosi n 0.4 mg capsule 12/26 completed Not Available Not Available Not Available amlodipin e 10 mg tablet TAKE 1 TABLET BY MOUTH EVERY DAY active Not Available Not Available No t Available oxybutyni n chloride 5 mg tablet TAKE 1 TABLET BY MOUTH THREE TIMES DAILY NEEDED 12/26 completed Not Available Not Available Not Available Ortho Tri-Cycle n (28) 0.18 mg(7)/0.2 15mg(7)/0 .25 mg(7)-0.0 35 mg tablet take 1 tablet by oral route every day 01/09 completed Prescrib ed Elsewher e: No Locat ion: [facility] odify By: paty Hicksou nter DateTime : 11/25/19 15 03:30:00 PM Not Available Not Available Not Available amoxicill in 875 mg-potass ium clavulana te 125 mg tablet TAKE 1 TABLET BY MOUTH EVERY 12 HOURS FOR 10 DAYS 07/27 completed Not Available Not Available Not Available rosuvasta tin 5 mg tablet TAKE HALF TABLET BY MOUTH DAILY 12/26 completed Not Available Not Available Not Available nitrofura ntoin monohydra te/macroc rystals 100 mg capsule TAKE 1 CAPSULE BY MOUTH TWICE DAILY 12/26 completed Not Available Not Available Not Available amlodipin e besylate (bulk) 100 % powder 12/26 completed Prescrib ed Elsewher e: Yes Loca tion: [facility] M odify By: eugenia Esparza ncounter DateTime : 05/18/19 09:00:00 AM Not Available Not Available Not Available ID NOW COVID-19 Test Kit TEST DIRECTED TODAY 07/27 completed Not Available Not Available Not Available Vitals Date Recorded Body weight Systolic blood pressure Diastolic blood pressure Systolic blood pressure Diastolic blood pressure Provider Name and Address Organization Details Last Updated DateTime 80051.2 5 g 149 mm[Hg] 86 mm[Hg] 136 mm[Hg] 88 mm[Hg] [facility] 10:28:26 Date Recorded Body weight Systolic blood pressure Diastolic blood pressure Provider Name and Address Organization Details Last Updated DateTime 07/22/2022 94588.17 g 155 mm[Hg] 95 mm[Hg] [facility] 07/22/2022 10:01:13 Date Recorded Body height Body mass index (BMI) Body weight Systolic blood pressure Diastolic blood pressure Provider Name and Address Organization Details Last Updated DateTime 07/28/2023 162.56 cm 36.9 kg/m2 64527.36 g 148 mm[Hg] 95 mm[Hg] Jonna Bruno [facility] 4 17:27:45 Social History Question Answer Notes LastModified by Organizat ion Details LastModified Time Tobacco Smoking Status [facility] 07/22/2022 09:47:33 Do You Have An Advance Directive? No Information not available 12/26/2020 What Is Your Level Of Alcohol Consumption? Occasional Information not available 07/28/2023 How Many Years Have You Consumed Alcohol? 20 Information not available 12/26/2020 Are You Blind Or Do You Have Difficulty Seeing? No Information not available 12/26/2020 What Is Your Level Of Caffeine Consumption? Moderate Information not available 12/26/2020 How Much Tobacco Do You Chew? None Information not available 07/28/2023 In The 14 Days Before Symptom Onset, Have You Had Close Contact With A Laboratory-confir med COVID-19 While That Case Was Ill? No Information not available 12/26/2020 In The 14 Days Before Symptom Onset, Have You Had Close Contact With A Person Who Is Under Investigation For COVID-19 While That Person Was Ill? No Information not available 12/26/2020 Have You Been To An Area Known To Be High Risk For COVID-19? No Information not available 12/26/2020 Are You Deaf Or Do You Have Serious Difficulty Hearing? No Information not available 12/26/2020 What Type Of Diet Are You Following? REGULAR Information not available 12/26/2020 What Is The Highest Grade Or Level Of School You Have Completed Or The Highest Degree You Have Received? [id number] [email or web address] Information not available 07/28/2023 What Is Your Occupation? [employer] Information not available 12/26/2020 Are There Any Guns Present In Your Home? No Information not available 12/26/2020 Do You Use Protection During Sex? No Information not available 12/26/2020 Do You Use Your Seat Belt Or Car Seat Routinely? Yes Information not available 12/26/2020 How Much Tobacco Do You Smoke? No Information not available 12/26/2020 Do You Feel Stressed (tense, Restless, Nervous, Or Anxious, Or Unable To Sleep At Night)? [id number] Information not available 12/26/2020 Do You Use Any Illicit Or Recreational Drugs? No Information not available 12/26/2020 Do You Use Sunscreen Routinely? Yes Information not available 12/26/2020 Have You Used IV Drugs? No Information not available 12/26/2020 Sex: Unknown Functional Status Question Answer Note LastModified by Organizat ion Details LastModified Time Are you able to walk? YESWOREST Information not available 12/26/2020 What is your exercise level? Occasional Information not available 12/26/2020 Mental Status None recorded. Family History Relationship Description Onset Age of this Age Resolved Age Notes LastModified by Organization Details LastModified Time Maternal Grandfather Diabetes mellitus Not available 2022 09:54:30 Maternal Grandfather Diabetes mellitus [email or web address] Not available 2023 17:18:44 Father Hypertensive disorder Not available 2022 09:54:30 Father Hypertensive disorder [email or web address] Not available 2023 17:18:44 Medical History Condition Response Allergies (Food, seasonal, environmental ) N Other N Breast Cancer N Drug/Latex Allergies/Reactions N Blood Transfusion N Dermatologic Disorders N Lung Disease N Defects or Inherited Disease N Breast Problem N Gestational Diabetes N Hematologic disorders N Anesthesia Complications N History of STI N Deep Vein Thrombosis N Polycystic ovary syndrome N Anxiety Disorder N Autoimmune disease N Arthritis N Infertility N Polyps N Acid Reflux (GERD) N History of abnormal pap N Cancer N Stroke N Varicosities N Neurologic/Epilepsy N Endometriosis N High Cholesterol N Headaches N Fibromyalgia N Kidney Disease N Heart Problems N Kidney or Bladder Problems N Thyroid Problems N GI Problems N Eating Disorder N Anemia N Art (IVF or FET) N Psychiatric Illness N Ovarian Cancer N Diabetes N Pulmonary (TB, Asthma) N Hepatitis/Liver Disease N No Past Medical History N Eczema N Urinary Tract Infection N Abuse/Domestic Violence N Asthma N Trauma/Violence N Depression/ depression N Heart Disease N Pre-Eclampsia N Hypertension N Osteoporosis N Thrombophilias N Gynecological History Statement/Question Response Date of LMP 07/01/2022 On BCP's at Conception? N N Was last menstrual period normal Y STIs/STDs N HPV Vaccine N Current Control Method IUD Age at First Child 25 Sexually Active? Y Age of first menstrual cycle 9 Date of Last Pap Smear 07/22/2022 Sexual Problems? N Desired Control Method IUD LMP Approximate N Obstetrics History GPAL:G 2 P 2 0 0 2 Type Value Full Term 2 Living 2 Total 2 Past Encounters Encounter ID Performer Location Encounter Start Date Encounter Closed Date Diagnosis/Indication Diagnosis SNOMED-CT Code Diagnosis ICD10 Code Diagnosis Note [id number] Marlon Rea MD [place] [address] [address] 12/26/2020 10:19:07 12/26/2020 11:57:54 Gynecologic examination [id number] Z01.419 Z11.51 This patient is here for her annual exam. A thorough history was taken. A physical exam was performed. Age appropriat e routine health screening was ordered, performed, and discussed. Recommende d testing was ordered. She was asked to follow up in one year. She will be informed of any test results. Mammogram - ordered Cholestero l - done Pap - today [id number] Marlon Rea MD [place] [address] [address] 07/22/2022 09:47:12 07/22/2022 10:37:50 Gynecologic examination [id number] Z01.419 Z11.51 Annual gynecologi fadi exam performed. Patient will come back in a year unless there are new symptoms. Suggest Calcium with Vitamin D if not eating in diet. Patient advised to get annual flu shot. Recommend yearly physicals and preform monthly breast exams. Genetic testing is available for patients with family history of cancer. Engage in safe sexual practices, use condoms. Encouraged to have daily exercise. Avoid tobacco and illicit drugs, moderation of alcohol. If BMI greater than 25 dietary consult advised. If you have any questions please call or email. Mammogram - ordered Cholestero l - done Pap - today [id number] Marlon Rea MD [place] [address] [address] 07/28/2023 17:18:17 07/28/2023 18:01:11 Gynecologic examination [id number] Z01.419 Z11.51 Annual gynecologi fadi exam performed. Patient will come back in a year unless there are new symptoms. Suggest Calcium with Vitamin D if not eating in diet. Patient advised to get annual flu shot. Recommend yearly physicals and preform monthly breast exams. Genetic testing is available for patients with family history of cancer. Engage in safe sexual practices, use condoms. Encouraged to have daily exercise. Avoid tobacco and illicit drugs, moderation of alcohol. If BMI greater than 25 dietary consult advised. If you have any questions please call or email. Cholestero l - done Pap - today Health Concerns Section Related Observation LastModified by Organization Detai ls LastModified Time None Recorded Concern Status LastModified by Organization Details LastModified Time None Recorded Advance Directives Directive N: Payers Encounter Date Sequence Insurance Name Policy Number Policy Lara Covered Member ID Lara Member ID Guarantor Name 12/26/2020 1 [place] [id number] Matthew De Leon [id number] 20 Jazmine De Leon 07/22/2022 1 [place] [id number] Matthew De Leon [id number] 20 Jazmine De Leon 07/28/2023 1 [place] [id number] Matthew De Leon [id number] 20 Jazmine De Leon Notes Date Note Type Note Provider Name and Address Organization Details Recorded Time 12/26/2020 text/html Annual GYNReport ed bypatient.History: no gynecologic complaints Menstrual cycle:Normal menses (spotting with Mirena placed) Urinary symptoms:No hematuria; No incontinence Vulva:No genital lesion Vagina:Normal vaginal discharge Breast:No breast pain; No breast lump; No nipple discharge Current Contraception:Sati sfied with current contraception; Intrauterine device (iud) Sexual complaints:No sexual complaints; No pain during intercourse Psychological symptoms:No depression; No anxiety Preventive measures:Encourage self breast examination; Encourage regular exercise Marlon Rea MD [address], [place], [address], [facility] 12/26/2020 10:54:42 07/22/2022 text/html Annual GYNReport ed bypatient.History: no gynecologic complaints Menstrual cycle:Normal menses Urinary symptoms:No hematuria; No incontinence Vulva:No genital lesion Vagina:Normal vaginal discharge Breast:No breast pain; No breast lump Current Contraception:Sati sfied with current contraception; Intrauterine device (iud) Sexual complaints:No sexual complaints Menopausal Symptoms:No menopausal symptoms Psychological symptoms:No depression; No anxiety Preventive measures:Encourage self breast examination; Encourage regular exercise Marlon Rea MD [address], [place], [address], [facility] 07/22/2022 10:36:26 07/28/2023 text/html Annual GYNReport ed bypatient.History: no gynecologic complaints Menstrual cycle:Normal menses Urinary symptoms:No hematuria; No incontinence Vulva:No genital lesion Vagina:Normal vaginal discharge Current Contraception:Intr auterine device (iud) Sexual complaints:No sexual complaints; No pain during intercourse Menopausal Symptoms:No menopausal symptoms; Normal vaginal lubrication Psychological symptoms:No depression; No anxiety Preventive measures:Encourage self breast examination; Encourage regular exercise Marlon Rea MD [address], [place], [address], [facility] 07/28/2023 17:59:41 OBGyn Episode Ob Episode Information Episode Created Date Number of Fetuses Patient Bloodtype Patient rh Status Prepregnancy Weight lbs Domestic Partner Domestic Partner Phone Father Name Shelter Supervisor Status 12/27/19 21 1 CLOSED Fetus Data First Name Last Name Admitted to NICU Weight (g) Sex Living Outcome Pediatric Complications Fetus ID Race Codes Race Delivery Type 3316.66 [id number] F Full Term [id number] Vaginal Delivery Dylon Calculation Initial Dylon Date Initial Exam Date Initial Exam Provider Initial Ultrasound Date Last Menstrual Period Date Ultra Sound Weeks Gestation 0 Eighteen To Twenty Week Dylon Update Ultra Sound Date Fundal Height At Umbil Quickening Date Ultra Sound Latest Weeks Gestation Final Dylon Confirmed By Final Dylon Confirmed Date Final Dylon Date Ultra Sound Latest Days Gestation 0 0 Menstrual History Last Menstrual Date Menses Monthly On Bcp Conception Prior Menses Frequency Hcg Plus Date Menarche Onset Age Delivery Information Delivery Date Delivery Type Labor Anesthesia Weeks Gestation Incision Type Labor Labor Length Hrs Delivered By Post Complications Tubal Sterilization Discharge Date Comments 6 40 Discharge Information Feeding Method Contraceptive Method Maternal HG B and HCT Levels Ob Episode Information Episode Created Date Number of Fetuses Patient Bloodtype Patient rh Status Prepregnancy Weight lbs Domestic Partner Domestic Partner Phone Father Name Shelter Supervisor Status 12/27/19 21 1 CLOSED Fetus Data First Name Last Name Admitted to NICU Weight (g) Sex Living Outcome Pediatric Complications Fetus ID Race Codes Race Delivery Type 3770.25 [id number] M Full Term [id number] Vaginal Delivery Dylon Calculation Initial Dylon Date Initial Exam Date Initial Exam Provider Initial Ultrasound Date Last Menstrual Period Date Ultra Sound Weeks Gestation 0 Eighteen To Twenty Week Dylon Update Ultra Sound Date Fundal Height At Umbil Quickening Date Ultra Sound Latest Weeks Gestation Final Dylon Confirmed By Final Dylon Confirmed Date Final Dylon Date Ultra Sound Latest Days Gestation 0 0 Menstrual History Last Menstrual Date Menses Monthly On Bcp Conception Prior Menses Frequency Hcg Plus Date Menarche Onset Age Delivery Information Delivery Date Delivery Type Labor Anesthesia Weeks Gestation Incision Type Labor Labor Length Hrs Delivered By Post Complications Tubal Sterilization Discharge Date Comments 7 36 Discharge Information Feeding Method Contraceptive Method Maternal HG B and HCT Levels
--- OUTSIDE RECORDS SUMMARY | 2024-08-07 15:55 | XMS_ITS | Clinical Summary ---
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 Gender Identity Not on file Sexual Orientation Not on file Plan of Treatment Health Maintenance Due Date Last Done Comments Hepatitis C Virus (HCV) Screening 1978 Hepatitis B Immunization (1 of 3 - 19+ 3-dose series) 1997 Pap Smear 09/22/1999 Cervical Cancer Screening (CCS) 2008 HPV/Cotest 2008 Discussion re Starting/Frequency of Mammograms 2018 Colonoscopy 09/22/2023 Colorectal Cancer Screening 09/22/2023 Influenza Immunization (#1) 2023 SARS-COV-2 Immunization ( season) 2023 07/06/2020, 06/06/2020 Respiratory Syncytial Virus (RSV) Immunization (Adult) (1 - 1-dose 75+ series) 2053 DTaP/Tdap/Td Immunization Discontinued 11/25/2018 TdaP Immunization Completed 11/25/2018 Meningococcal Immunization (ACWY) Aged Out No longer eligible based on patient's age to complete this topic Pneumococcal Immunization Combined Aged Out No longer eligible based on patient's age to complete this topic Rotavirus Immunization Aged Out No lo nger eligible based on patient's age to complete this topic
--- OUTSIDE RECORDS SUMMARY | 2024-08-07 15:55 | XMS_ITS | Clinical Summary ---
Author Organization [facility] Address [address] [place] [phone] Phone Care Team Providers Care Rehabilitation Therapist Name Role Phone Nicole Grullon MD Primary Care Provider Allergies No known active allergies Medications amLODIPine (NORVASC) 10 MG tablet Take 10 mg by mouth 1 (one) time each day Active tamsulosin (FLOMAX) 0.4 MG 24 hr capsule Take 0.4 mg by mouth 1 (one) time each day Active rosuvastatin (CRESTOR) 5 MG tablet 3 11/25/2018 Active Active Problems Problem Noted Date Diagnosed Date Hypertension Personal history of kidney stones Calculus of kidney Family History Medical History Relation Comments Hypertension Father Kidney stone Father Relation Status Comments Father Social History Tobacco Use Types Packs/Day Years Used Date Smoking Tobacco: Former Smokeless Tobacco: Never Alcohol Use Standard Drinks/Week Comments Not Currently 0 (1 standard drink = 0.6 oz pur e alcohol) Comments Unknown Sex and Gender Information Value Date Recorded Sex Assigned at Not on file Legal Sex Female 12:27 PM MDT Gender Identity Not on file Sexual Orientation Not on file Last Filed Vital Signs Vital Sign Reading Time Taken Comments Blood Pressure 132/78 02/18/2019 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 Pulse - - Temperature 36.7 C (98 F) 02/18/2019 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 Respiratory Rate - - Oxygen Saturation - - Inhaled Oxygen Concentration - - Weight 89.8 kg (198 lb) 02/18/2019 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
== END 2024-08-07 08:19 | disposition home or self-care (01) ==
LOC: CHSLAB 08:22
PROVIDERS: PCP Internal Medicine; Visit Provider Internal Medicine
DX: Z00.00 Encounter for general adult medical examination without abnormal findings (principal); R73.01 Impaired fasting glucose; N39.0 Urinary tract infection, site not specified
CPT/HCPCS: 36415; 80053; 80061; 81001; 83036; 84443; 85025; 87086

== ENCOUNTER 2025-03-21 13:56 | Outpatient (CLI) | payer BC, SELFPAY ==
[2025-03-21 14:32] LABS: Anion Gap 9 mmol/L (4-12); Blood Urea Nitrogen 13 mg/dL (7-17); Calcium 10.5 mg/dL (8.4-10.2); Carbon Dioxide 28 mmol/L (22-30); Chloride 104 mmol/L (98-107); Estimated Glomerular Filt Rate 51; Glucose 97 mg/dL (65-110); Osmolality Calculated 292 mOsm/kg (285-295); Potassium 3.9 mmol/L (3.4-5.0); Sodium 141 mmol/L (137-145)
== END 2025-03-21 13:57 | disposition home or self-care (01) ==
LOC: CHSLAB 13:58
PROVIDERS: PCP Internal Medicine; Visit Provider Internal Medicine
DX: E86.0 Dehydration (principal)
CPT/HCPCS: 36415; 80048